=== PATIENT | female | born 1940 | race Caucasian/White ===

== ENCOUNTER 2020-02-15 10:05 | Emergency (ER) | payer MEDICARE, SELFPAY ==
[2020-02-15] VITALS (21 sets, daily range): BP systolic 65–121; BP diastolic 46–67; PULSE 60–92; RESP 11–22; TEMP 36.5; O2SAT 94–100
--- NOTE | ~2020-02-15 | CT_ITS ---
EXAMINATION: CT brain wo con EXAM DATE: 02/15/2020 10:56 INDICATION: Frontal headache, vertigo. TECHNIQUE: Spiral CT of the head was performed without contrast. Axial, coronal and sagittal images were reviewed. The dose-length product (DLP) for this examination was 605.33 mGy-cm. The exposure w as tailored according to patient size, and iterative reconstruction (ASIR) was used as additional dos e reduction technique. Comparison is made to prior examination from 07/11/2016. FINDINGS: There is no acute intraparenchymal hemorrhage. No evidence of intraparenchymal brain mass lesion. No evidence of acute infarction. Please note that initial head CT has limited sensitivity f or small or acute infarctions. There is mild periventricular and subcortical hypodensity, nonspecific but probably related to small vessel ischemic disease. There is mild prominence of the sulci and v entricles related to cerebral atrophy. There is intracranial carotid arteriosclerosis. There are n o extra-axial collections. There is no mass effect or midline shift. Patient has had bilateral ocul ar lens surgery. Soft tissue is unremarkable. The visualized sinuses and mastoid air cells are well aerated. IMPRESSION: 1. No acute intracranial findings. 2. Chronic age related findings. Reviewed, dictated and finalized at location A.
[2020-02-15 10:59] LABS: Basophils Absolute Auto 0.1 K/mm3 (0.0-0.1); Basophils Percent Auto 0.5 % (0.2-1.2); Eosinophils Absolute Auto 0.2 K/mm3 (0-0.3); Eosinophils Percent Auto 2.5 % (0-4.4); Hematocrit 40.9 % (37.0-47.0); Immature Granulocyte Absolute 0.03 K/mm3 (0.00-0.031); Immature Granulocyte Percent A 0.3 % (0-0.5); Lymphocytes Absolute Auto 2.16 K/mm3 (0.9-3.2); Lymphocytes Percent Auto 22.9 % (18.3-44.2); Mean Corpuscular HGB Conc 34.2 g/dl (32-36); Mean Corpuscular Hemoglobin 30.4 pg (26-34); Mean Corpuscular Volume 88.7 fl (80-100); Mean Platelet Volume 9.8 fl (7.4-10.4); Monocytes Absolute Auto 0.8 K/mm3 (0.1-0.6); Monocytes Percent Auto 8.4 % (2.6-8.5); Neutrophils Absolute Auto 6.2 K/mm3 (1.3-6.7); Neutrophils Percent Auto 65.4 % (45.5-73.1); Platelet Count Result 187 k/mm3 (150-375); Red Blood Count 4.61 M/mm3 (4.2-5.4); White Blood Count 9.5 K/mm3 (4.5-10.0)
[2020-02-15 11:04] LABS: Add Urine Microscopic? YES; Appearance Urine Cloudy (Clear); Bacteria Urine Trace /hpf; Bilirubin Urine Negative (Negative); Blood Urine 1+ (Negative); Color Urine Yellow (Yellow); Glucose Urine UA Negative (Negative); Ketones Urine Trace mg/dL (Negative); Leukocyte Esterase Ur 3+ LEU/UL (Negative); Mucus Urine Rare /lpf; Nitrate Urine Negative (Negative); Protein Urine Negative (Negative); Specific Grav Ur 1.016 (1.001-1.035); Squamous Epithelial Cell Urine Moderate /hpf (Few); Urobilinogen Urine Negative mg/dL (<2.0); WBC Urine 16-20 /hpf
[2020-02-15 11:08] LABS: INR 1.1; Prothrombin Time 14.2 Seconds (11.1-14.7)
[2020-02-15 11:09] LABS: Partial Thromboplastin Time 30.2 SECONDS (22.3-36.8)
[2020-02-15 11:10] LABS: Alanine Aminotransferase 15 U/L (4-35); Albumin Level 4.3 g/dL (3.5-5.1); Alkaline Phosphatase 73 U/L (38-126); Anion Gap 9 mmol/L (8-16); Aspartate Amino Transferase 27 U/L (14-36); Bilirubin,Total 0.6 mg/dL (0.2-1.3); Blood Urea Nitrogen 22 mg/dL (7-17); Calcium 9.6 mg/dL (8.4-10.2); Carbon Dioxide 26 mmol/L (22-30); Chloride 100 mmol/L (98-107); Estimated CRCL calculation 40 ml/min; Estimated Glomerular Filt Rate 54; Glucose 98 mg/dL (65-105); Lipase 49 U/L (23-300); Sodium 135 mmol/L (137-145)
[2020-02-15] MEDS: SODIUM CHLORIDE 0.9% IV 1,000 ML 999 ML IV CONT (11:21)
[2020-02-15] MEDS: MECLIZINE HCL 25 MG TABLET 12.5 MG PO (11:22)
[2020-02-15] MEDS: KETOROLAC 15 MG/ML VIAL (*BKC) IV PUSH (11:22)
--- NOTE | 2020-02-15 12:41 | ED.GENADULT ---
HPI - General Adult General Chief complaint: Dizziness <Byron Blanco PA-C - Last Filed: 02/15/20 22:29> Stated complaint: diarrhea, nausea, ARMIJO, vertigo <Byron Blanco PA-C - Last Filed: 02/15/20 22:29> Time Seen by Provider: 02/15/20 10:15 <Byron Blanco PA-C - Last Filed: 02/15/20 22:29> Source: patient <CLAUDIA Kathleen Last Filed: 02/15/20 22:29> Mode of arrival: ambulatory <Byron Blanco PA-C - Last Filed: 02/15/20 22:29> Limitations: no limitations <CLAUDIA Kathleen Last Filed: 02/15/20 22:29> History of Present Illness HPI narrative: Patient presents for evaluation of frontal headache and vertigo that has been progressively worsening since Friday. Patient states that on Friday she had nausea and vomiting 2000 which resolved after 2 days. Patient states that she did eat sauerkraut that day but is unsure if that caused her symptoms. Patient states she has a history of migraines and vertigo but her symptoms are not normally as bad as they have been over the past few days. Patient denies changes in her vision or hearing. Or any head trauma. Patient states that she takes a daily aspirin and Fioricet for migraines. Patient denies taking medication for vertigo. She states in the past she took meclizine. Patient states that this time she does not have nausea or vomiting and only has very mild lower abdominal tenderness over her bladder area. Patient denies burning with urination or frequent urination. <CLAUDIA Kathleen Last Filed: 02/15/20 22:29> Related Data Home medications: Home Medications Medication Instructions Recorded Confirmed antiarthritic combination no.2 900 mg PO 08/25/19 08/25/19 mg tablet aspirin 81 mg tablet,delayed 81 mg PO DAILY 08/25/19 08/25/19 release calcium carbonate 600 mg calcium 600 mg PO DAILY 08/25/19 08/25/19 (1,500 mg) tablet esomeprazole magnesium 40 mg 40 mg PO DAILY 08/25/19 08/25/19 capsule,delayed release hyoscyamine sulfate 0.125 mg tablet 0.125 mg PO DAILY PRN tablet 08/25/19 08/25/19 loperamide 2 mg tablet 2 mg PO Q4H PRN 08/25/19 08/25/19 metoprolol succinate 25 mg 25 mg PO DAILY 08/25/19 08/25/19 tablet,extended release 24 hr ondansetron HCl 4 mg tablet 4 mg PO Q6H PRN 08/25/19 08/25/19 oxybutynin chloride 5 mg 5 mg PO DAILY 08/25/19 08/25/19 tablet,extended release 24 hr psyllium husk 0.4 gram capsule 0.4 gm PO DAILY 08/25/19 08/25/19 rosuvastatin 10 mg tablet 10 mg PO DAILY 08/25/19 08/25/19 <CLAUDIA Kathleen Last Filed: 02/15/20 22:29> Allergies/adverse reactions: Allergies Allergy/AdvReac Type Severity Reaction Status Date / Time amoxicillin Allergy Mild Nausea and Verified 02/15/20 10:06 Vomiting cefaclor Allergy Mild Nausea and Verified 02/15/20 10:06 Vomiting erythromycin base Allergy Mild Nausea and Verified 02/15/20 10:06 Vomiting clavulanic acid AdvReac Mild Nausea and Verified 02/15/20 10:06 Vomiting Penicillins AdvReac Mild Nausea and Verified 02/15/20 10:06 Vomiting <CLAUDIA Kathleen Last Filed: 02/15/20 22:29> Review of Systems Review of Systems: Narrative: CONSTITUTIONAL: Denies fever, chills, or sweats. EYES: Denies visual changes, redness, or discharge. ENT: Denies rhinorrhea, congestion, sore throat, or otalgia. CARDIOVASCULAR: Denies chest pain, palpitations, or edema. RESPIRATORY: Denies cough or dyspnea. GASTROINTESTINAL: Reports mild lower abdominal pain, denies present nausea, vomiting, or diarrhea. GENITOURINARY: Denies dysuria or hematuria. SKIN: Denies rash or itching. MUSCULOSKELETAL: Denies back pain, joint pain, or myalgia. NEUROLOGIC: Reports headache, denies numbness, dizziness, or weakness. <CLAUDIA Kathleen Last Filed: 02/15/20 22:29> [facility] Social History Social History: Social History Smoking status: Never smoker Second hand tobacco smoke
== END 2020-02-15 13:30 | disposition home or self-care (01) ==
PROVIDERS: Physician Assistant; Emergency Provider General Practice; PCP Internal Medicine
DX: H81.10 Benign paroxysmal vertigo, unspecified ear (principal); N39.0 Urinary tract infection, site not specified; Z79.82 Long term (current) use of aspirin; R10.30 Lower abdominal pain, unspecified
CPT/HCPCS: 36415; 70450; 80053; 81001; 83690; 85025; 85610; 85730; 87077; 87086; 87088; 87186; 96365; 96375; 99284; A9270; J0131; J1885; J7030

== ENCOUNTER 2020-03-28 08:31 | Outpatient (CLI) | payer MEDICARE, SELFPAY ==
--- NOTE | ~2020-03-28 | XR_ITS ---
XR UGIAC w barium swallow DATE: 03/28/2020 09:45 INDICATION: Food sometimes gets stuck in the lower cervical area TECHNIQUE: Esophagram and Air-contrast upper gastrointestinal series COMPARISON: 09/26/2015 air contrast upper gastrointestinal series FINDINGS: There is normal deglutition. No cricopharyngeal muscle dysfunction or Zenker's diverticulum . Some tertiary contractions of the esophagus are noted. No stricture, mucosal fold thickening, erosi on, ulceration or intraluminal mass lesion of the esophagus is evident. Approximately 3.5 x 5.5 cm sliding-type hiatal hernia. No stricture or intraluminal mass lesion of the stomach or gastric mucosal erosion or ulceration is e vident. The duodenal bulb is normally shaped. Normal mucosal pattern of the duodenum. Approximately 4 cm duodenal diverticulum. The proximal small bowel mucosal pattern appears normal. No evidence of small bowel obstruction. Surgical clips at the gallbladder fossa, consistent with cholecystectomy IMPRESSION: Approximately 3.5 x 5.5 cm sliding hiatal hernia 4 cm duodenal diverticulum Status post cholecystectomy Reviewed, dictated and finalized at Location [facility]. Reviewed, dictated and finalized at location A.
== END 2020-03-28 08:32 | disposition home or self-care (01) ==
PROVIDERS: PCP Internal Medicine; Visit Provider Internal Medicine Gastroenterology
DX: R13.10 Dysphagia, unspecified (principal); K44.9 Diaphragmatic hernia without obstruction or gangrene; K57.10 Diverticulosis of small intestine without perforation or abscess without bleeding; Z90.49 Acquired absence of other specified parts of digestive tract
CPT/HCPCS: 74246

== ENCOUNTER 2020-05-30 10:16 | Outpatient (CLI) | payer MEDICARE, SELFPAY ==
--- NOTE | ~2020-05-30 | MM_ITS ---
EXAMINATION: MM screening [facility] BI w carlos HISTORY: Screening TECHNIQUE: Craniocaudal and mediolateral oblique 3-D tomosynthesis images were obtained and synthetic 2-D images were generated. CAD analysis was submitted and interpreted. COMPARISON: Comparison to multiple prior studies sequentially, with oldest reviewed study dated 05/02. BREAST PARENCHYMAL COMPOSITION: There are scattered areas of fibroglandular density. FINDINGS: There is no evidence of suspicious mass, calcification, or architectural distortion to sugg est malignancy in either breast. There has been no suspicious interval change. IMPRESSION: 1. No mammographic evidence of malignancy. 2. Recommend routine screening mammography in one year. BI-RADS Category 1: Negative Reviewed, dictated and finalized at location A. WORK [employer]
== END 2020-05-30 10:17 | disposition home or self-care (01) ==
LOC: ANHIMG 10:22
PROVIDERS: PCP Internal Medicine; Visit Provider Internal Medicine
DX: Z12.31 Encounter for screening mammogram for malignant neoplasm of breast (principal)
CPT/HCPCS: 77063; 77067

== ENCOUNTER 2021-03-02 10:48 | Outpatient (CLI) | payer MEDICARE, SELFPAY ==
[2021-03-02 11:32] LABS: Add Urine Microscopic? YES; Appearance Urine Clear (Clear); Bilirubin Urine Negative (Negative); Blood Urine 1+ (Negative); Color Urine Yellow (Yellow); Glucose Urine UA Negative (Negative); Ketones Urine Negative (Negative); Leukocyte Esterase Ur 2+ LEU/UL (Negative); Mucus Urine Rare /lpf; Nitrate Urine Negative (Negative); Protein Urine Negative (Negative); RBC Urine 0-2 /hpf (0-2); Specific Grav Ur 1.014 (1.001-1.035); Squamous Epithelial Cell Urine Few /hpf (Few); Urobilinogen Urine Negative mg/dL (<2.0); WBC Urine 0-3 /hpf
== END 2021-03-02 10:49 | disposition home or self-care (01) ==
PROVIDERS: PCP Internal Medicine; Visit Provider Internal Medicine
DX: R30.0 Dysuria (principal)
CPT/HCPCS: 81001

== ENCOUNTER → 2021-03-03 00:42 | Outpatient (CLI) | payer MEDICARE, SELFPAY ==
[2021-03-03 19:34] LABS: SARS-CoV-2 RNA PCR Positive
== END ==
PROVIDERS: PCP Internal Medicine; Visit Provider Internal Medicine
DX: U07.1 COVID-19 (principal)
CPT/HCPCS: C9803; U0003; U0005

== ENCOUNTER 2021-03-05 09:48 | Outpatient (RCR) | payer MEDICARE, SELFPAY ==
[2021-03-05] MEDS: ACETAMINOPHEN 325 MG TABLET 650 MG PO (11:38)
[2021-03-05] MEDS: FAMOTIDINE 20 MG TABLET PO (11:39)
[2021-03-05] MEDS: diphenhydrAMINE HCl CAP 25 MG CAPSULE PO (11:39)
[2021-03-05 11:53] VITALS: BP 141/62; PULSE 72; RESP 18; TEMP 36.6; O2SAT 97
[2021-03-05 13:02] VITALS: BP 130/60
--- NOTE | 2021-03-06 15:11 | PC.NURSE ---
Patient states that she feel a little better. No complications after the covid infusion.
== END 2021-03-05 15:44 | disposition home or self-care (01) ==
LOC: AMCINF 09:48
PROVIDERS: PCP Internal Medicine; Referring Provider Internal Medicine; Visit Provider Internal Medicine Hematology & Oncology
DX: Z23 Encounter for immunization (principal); U07.1 COVID-19
CPT/HCPCS: A9270; J7050; M0243; Q0244

== ENCOUNTER 2021-08-13 07:25 | Outpatient (CLI) | payer MEDICARE, SELFPAY ==
--- NOTE | ~2021-08-13 | MM_ITS ---
EXAMINATION: MM screening [facility] BI w carlos HISTORY: Screening mammogram TECHNIQUE: Craniocaudal and mediolateral oblique 3-D tomosynthesis images were obtained and synthetic 2-D images were generated. CAD analysis was submitted and interpreted. COMPARISON: 05/30/2020, 05/03/2019, 04/28/2018 BREAST PARENCHYMAL COMPOSITION: There are scattered areas of fibroglandular density. FINDINGS: There is no evidence of suspicious mass, calcification, or architectural distortion to sugg est malignancy in either breast. There has been no suspicious interval change. IMPRESSION: 1. No mammographic evidence of malignancy. 2. Recommend routine screening mammography in one year. BI-RADS Category 1: Negative Reviewed, dictated and finalized at location A.
== END 2021-08-13 07:26 | disposition home or self-care (01) ==
LOC: ANHIMG 07:28
PROVIDERS: PCP Internal Medicine; Visit Provider Internal Medicine
DX: Z12.31 Encounter for screening mammogram for malignant neoplasm of breast (principal)
CPT/HCPCS: 77063; 77067

== ENCOUNTER 2021-08-29 12:42 | Outpatient (CLI) | payer MEDICARE, SELFPAY ==
--- NOTE | ~2021-08-29 | XR_ITS ---
XR chest 2V DATE: 08/29/2021 13:00 INDICATION: Cough TECHNIQUE: PA and lateral views COMPARISON: 10/17/2014 2 view chest FINDINGS: Bilateral hyperinflation, increased retrosternal airspace, suggesting COPD. No pulmonary in filtrate or consolidation, pleural effusion or pulmonary vascular congestion or pneumothorax. Normal heart size. No hilar or mediastinal enlargement. There is levoscoliosis of the thoracic spine and rotatory dextroscoliosis of the lumbar spine. Diffuse osteopenia. IMPRESSION: Bilateral hyperinflation consistent with COPD No active cardiopulmonary disease Thoracic and lumbar scoliosis Osteopenia Reviewed, dictated and finalized at location A.
== END 2021-08-29 12:43 | disposition home or self-care (01) ==
PROVIDERS: PCP Internal Medicine; Visit Provider Internal Medicine
DX: R05.9 Cough, unspecified (principal); R91.8 Other nonspecific abnormal finding of lung field; M41.9 Scoliosis, unspecified; M85.88 Other specified disorders of bone density and structure, other site
CPT/HCPCS: 71046

== ENCOUNTER 2022-01-16 07:46 | Outpatient (CLI) | payer MEDICARE, SELFPAY ==
--- NOTE | ~2022-01-16 | DEXA_ITS ---
Bone Density Report Name: ALIN GAUTAM Age: 81 Sex: Female Ethnicity: White Date of : 1940 Indication: postmenopausal; screening for osteoporosis; height loss; prior fracture; hysterectomy; Referring Provider: BARRETT MARTIN Study: Bone densitometry was performed. Exam Date: January 16, 2022 Accession number: [id number] Bone Density: Region BMD T-score Z-score Classification AP Spine(L1, L2) 0.979 0.0 2.5 Normal Femoral Neck (Left) 0.703 -1.3 1.0 Osteopenia Total Hip (Left) 0.820 -1.0 1.0 Normal Femoral Neck (Right) 0.665 -1.7 0.6 Osteopenia Total Hip (Right) 0.781 -1.3 0.7 Osteopenia Total Hip Mean 0.801 -1.2 0.9 Osteopenia World Health Organization criteria for BMD impression classify patients as: Normal (T-score at or above -1.0), Osteopenia (T-score between -1.0 and -2.5), or Osteoporosis (T-score at or below -2.5). 10-year Fracture Risk(1): Major Osteoporotic Fracture 18% Hip Fracture 4.3% Reported Risk Factors: [place] (), Neck BMD=0.665, BMI=22.1, previous fracture (1) FRAX(R) Version 3.08. Fracture probability calculated for an untreated patient. Fracture probability may be lower if the patient has received treatment. Previous Exams: Region Exam Age BMD T-score BMD Change BMD Change Date g/cm2 vs Baseline vs Previous AP Spine (L1-L2) 01/16/2022 81 0.979 0.0 -0.024 (-2.4%) -0.024 (-2.4%) 04/01/2019 78 1.003 0.2 Total Hip(Left) 01/16/2022 81 0.820 -1.0 -0.061 (-6.9%) -0.061 (-6.9%) 04/01/2019 78 0.881 -0.5 Total Hip(Right) 01/16/2022 81 0.781 -1.3 -0.054 (-6.4%) -0.054 (-6.4%) 04/01/2019 78 0.835 -0.9 *Denotes significance at 95% confidence level, LSC for AP Spine = 0.022 g/cm2, LSC for Total Hip = 0.027 g/cm2 Clinical Information Provided by Patient: Has had a low trauma fracture Has used the following medications: Vitamin D, Calcium Has the following medical conditions: Hysterectomy Patient maximum height was 68 Menopause Age: 47 No regular weight bearing exercise Does not regularly consume dairy products Drinks caffeinated beverages Onset of menses at age 16 Number of children 2 Impression: The patient has low bone mass, based on the Right Femoral Neck T-score. The patient has an estimated ten-year risk of hip fracture of 4.3% and an estimated ten-year risk of major fracture of 18%, based on the WHO FRAX algorithm. The patient has risk factors, including: previo
== END 2022-01-16 07:47 | disposition home or self-care (01) ==
PROVIDERS: PCP Internal Medicine; Visit Provider Physician Assistant
DX: M85.80 Other specified disorders of bone density and structure, unspecified site (principal); M85.852 Other specified disorders of bone density and structure, left thigh; M85.851 Other specified disorders of bone density and structure, right thigh
CPT/HCPCS: 77080

== ENCOUNTER 2022-03-15 10:29 | Outpatient (CLI) | payer MEDICARE, SELFPAY ==
[2022-03-15 11:35] LABS: Add Urine Microscopic? YES; Appearance Urine Cloudy (Clear); Bacteria Urine Trace /hpf; Bilirubin Urine Negative (Negative); Blood Urine Negative (Negative); Color Urine Yellow (Yellow); Glucose Urine UA Negative (Negative); Ketones Urine Negative (Negative); Leukocyte Esterase Ur Trace LEU/UL (NEGATIVE); Mucus Urine Rare /lpf; Nitrate Urine Negative (Negative); Protein Urine Negative (Negative); Specific Grav Ur 1.021 (1.001-1.035); Squamous Epithelial Cell Urine Few /hpf (Few); Urobilinogen Urine Negative mg/dL (<2.0); WBC Urine 0-3 /hpf (0-3)
== END 2022-03-15 10:30 | disposition home or self-care (01) ==
PROVIDERS: PCP Internal Medicine; Visit Provider Physician Assistant
DX: R30.0 Dysuria (principal)
CPT/HCPCS: 81001

== ENCOUNTER 2022-04-29 08:07 | Day surgery (SDC) | payer MEDICARE, SELFPAY ==
[2022-04-17 09:57] VITALS: BMI 21.7
[2022-04-29 08:20] VITALS: BP 124/66; PULSE 66; RESP 16; TEMP 36.6; O2SAT 100
--- NOTE | 2022-04-29 08:48 | WPDANESEPPF ---
Anes - Initial Pre Proc Eval Procedure: Operation Date: 04/29/22 09:45 Proposed Procedures p Esophagogastroduodenoscopy - Trey Magallon MD Date/Time: 04/29/22 08:48 Surgeon: Trey Magallon MD Pre Op Diagnosis: Dysphagia Patient Data Age: 81 Gender: F Height: 1.68 m Weight: 61 kg Last Vital Signs Temp 36.6 C 04/29/22 08:20 Pulse 66 04/29/22 08:20 Resp 16 04/29/22 08:20 BP 124/66 04/29/22 08:20 Pulse Ox 100 04/29/22 08:20 O2 Del Method Room Air 04/29/22 08:20 Allergies Allergy/AdvReac Type Severity Reaction Status Date / Time amoxicillin Allergy Mild Nausea and Verified 04/29/22 08:28 Vomiting cefaclor Allergy Mild Nausea and Verified 04/29/22 08:28 Vomiting erythromycin base Allergy Mild Nausea and Verified 04/29/22 08:28 Vomiting clavulanic acid AdvReac Mild Nausea and Verified 04/29/22 08:28 Vomiting Penicillins AdvReac Mild Nausea and Verified 04/29/22 08:28 Vomiting cefuroxime AdvReac Diarrhea Verified 04/29/22 08:28 Home Medications Medication Instructions Recorded Confirmed Type aspirin 81 mg tablet,delayed 81 mg PO DAILY 08/25/19 04/29/22 History release (Adult Low Dose Aspirin) calcium carbonate 600 mg calcium 600 mg PO DAILY 08/25/19 04/29/22 History (1,500 mg) tablet (Calcium) oxybutynin chloride 5 mg 5 mg PO DAILY 08/25/19 04/29/22 History tablet,extended release 24 hr psyllium husk 0.4 gram capsule 0.4 gm PO DAILY 08/25/19 04/29/22 History (Daily Fiber) rosuvastatin 10 mg tablet (Crestor) 10 mg PO DAILY 08/25/19 04/29/22 History antiarthritic combination no.2 900 900 mg PO BID PRN pain 02/07/21 04/29/22 History mg tablet (glucosamine-chondroitin) multivitamin (Daily Multi-Vitamin 1 tablet PO DAILY 02/07/21 04/29/22 History tablet) omeprazole 20 mg capsule,delayed 20 mg PO BID 3 months #180 caps 09/11/21 04/29/22 Rx release diphenoxylate-atropine 2.5 1 tablet PO TID PRN diarrhea #60 11/15/21 04/29/22 Rx mg-0.025 mg tablet (Lomotil) tabs citalopram 40 mg tablet 40 mg PO DAILY #90 tabs 02/18/22 04/29/22 Rx hyoscyamine sulfate 0.375 mg See Rx Instructions .Route 02/19/22 04/29/22 Rx tablet,extended release,12 hr .COMPLEX #30 tabs meloxicam 15 mg tablet 15 mg PO DAILY #90 tabs 03/04/22 04/29/22 Rx metoprolol succinate 25 mg 12.5 mg PO DAILY 03/15/22 04/29/22 History tablet,extended release 24 hr pehuhgxkxk-okrfpefnvvlnc-mkcfoqxy 1 tablet PO .q12 PRN headache #30 03/25/22 04/29/22 Rx 50 mg-325 mg-40 mg tablet tabs alprazolam 0.5 mg tablet 0.5 mg PO DAILY PRN anxiety #30 04/19/22 04/29/22 Rx tabs Patient hx anesthesia problems: none Family hx anesthesia problems: none Results Review: All pre-operative results and documents have been reviewed as part of the pre-operative evaluation. [facility] Past Medical History Medical History (Updated 04/04/22 @ 12:50 by Prabhakar Colindres DO) Colon cancer screening Surgical History Surgical History (Updated 04/29/22 @ 08:50 by Mahendra Reed MD) S/P repair of paraesophageal hernia open Family History Family History Mother Family history of lung cancer, Onset Age: 74 Father Patient's father is Social History Social History Smoking status: Never smoker Second hand tobacco smoke exposure: No Alcohol intake: never Substance use: never Substance use type: does not use Lack of Transportation: No Lack of Food: Never True Current Housing: I Have Housing Concerned About Future Housing: No Difficulty Paying Gas/Electric Bills: No Difficulty Paying for Meds: No Currently Unemployed: No Education: Decline to Answer Difficulty w/ Childcare or Family Care: No Living arrangements: alone Spiritual care concerns: No Anes - Eval Final PreProcedure Day of Procedure 04/29/22 08:48
[2022-04-29] MEDS: LACTATED RINGERS 1,000 ML 150 ML IV CONT (08:49)
--- NOTE | 2022-04-29 09:12 | PM.HPGS ---
History of Present Illness History of Present Illness Consent: Risks, benefits, and alternatives have been discussed and questions answered. Patient agrees to proceed with procedure. Chief complaint: Dysphagia Narrative: Minda Meyer is a 81 year old female presents for EGD. Patient has complaints that when she has for wakes 1st thing in the morning she has to drink water otherwise it is difficult for her to swallow. She feels that food will hang in her mouth the not progress into her esophagus. She denies any significant heartburn. Infrequently she will have a small amount of reflux. Patient denies any weight loss she has no pain. Patient reports that in 2016 she had laparoscopic paraesophageal hiatal hernia repair. She apparently has done well since that time. Patient currently maintained on omeprazole 20mg p.o. b.i.d.. She has been treated for irritable bowel syndrome. Screening colonoscopies have been unremarkable. Review of Systems Review of Systems: Review of systems noncontributory. [facility] Past Medical History Medical History (Updated 04/04/22 @ 12:50 by Prabhakar Colindres DO) Colon cancer screening Surgical History Surgical History (Updated 04/29/22 @ 09:14 by Trey Magallon MD) S/P repair of paraesophageal hernia open Family History Family History Mother Family history of lung cancer, Onset Age: 74 Father Patient's father is Social History Social History Smoking status: Never smoker Second hand tobacco smoke exposure: No Alcohol intake: never Substance use: never Substance use type: does not use Lack of Transportation: No Lack of Food: Never True Current Housing: I Have Housing Concerned About Future Housing: No Difficulty Paying Gas/Electric Bills: No Difficulty Paying for Meds: No Currently Unemployed: No Education: Decline to Answer Difficulty w/ Childcare or Family Care: No Living arrangements: alone Spiritual care concerns: No Meds Home Medications and Allergies Home Medications Medication Instructions Recorded Confirmed Type aspirin 81 mg tablet,delayed 81 mg PO DAILY 08/25/19 04/29/22 History release (Adult Low Dose Aspirin) calcium carbonate 600 mg calcium 600 mg PO DAILY 08/25/19 04/29/22 History (1,500 mg) tablet (Calcium) oxybutynin chloride 5 mg 5 mg PO DAILY 08/25/19 04/29/22 History tablet,extended release 24 hr psyllium husk 0.4 gram capsule 0.4 gm PO DAILY 08/25/19 04/29/22 History (Daily Fiber) rosuvastatin 10 mg tablet (Crestor) 10 mg PO DAILY 08/25/19 04/29/22 History antiarthritic combination no.2 900 900 mg PO BID PRN pain 02/07/21 04/29/22 History mg tablet (glucosamine-chondroitin) multivitamin (Daily Multi-Vitamin 1 tablet PO DAILY 02/07/21 04/29/22 History tablet) omeprazole 20 mg capsule,delayed 20 mg PO BID 3 months #180 caps 09/11/21 04/29/22 Rx release diphenoxylate-atropine 2.5 1 tablet PO TID PRN diarrhea #60 11/15/21 04/29/22 Rx mg-0.025 mg tablet (Lomotil) tabs citalopram 40 mg tablet 40 mg PO DAILY #90 tabs 02/18/22 04/29/22 Rx hyoscyamine sulfate 0.375 mg See Rx Instructions .Route 02/19/22 04/29/22 Rx tablet,extended release,12 hr .COMPLEX #30 tabs meloxicam 15 mg tablet 15 mg PO DAILY #90 tabs 03/04/22 04/29/22 Rx metoprolol succinate 25 mg 12.5 mg PO DAILY 03/15/22 04/29/22 History tablet,extended release 24 hr nmzotuqsyo-fbwwnfartfnzx-xilgznza 1 tablet PO .q12 PRN headache #30 03/25/22 04/29/22 Rx 50 mg-325 mg-40 mg tablet tabs alprazolam 0.5 mg tablet 0.5 mg PO DAILY PRN anxiety #30 04/19/22 04/29/22 Rx tabs Allergies Allergy/AdvReac Type Severity Reaction Status Date / Time amoxicillin Allergy Mild Nausea and Verified 04/29/22 08:28 Vomiting cefaclor Allergy Mild Nausea and Verified 04/29/22 08:28 Vomiting erythromy
[2022-04-29 09:38] VITALS: BP 140/60; PULSE 60; RESP 16; O2SAT 100
--- NOTE | 2022-04-29 09:47 | WPDANESPN ---
Anes - Prog Note Post-Op Date/Time: 04/29/22 09:47 Cardiovascular status: normal Respiratory status: normal Airway patency: baseline Mental status: baseline Post-Op hydration status: normal Vital Signs: Last Vital Signs Temp 36.6 C 04/29/22 08:20 Pulse 60 04/29/22 09:38 Resp 16 04/29/22 09:38 BP 140/60 04/29/22 09:38 Pulse Ox 100 04/29/22 09:38 O2 Del Method Room Air 04/29/22 09:38 Pain Score (VAS): 0/10 I/O: Intake & Output 04/28/22 04/29/22 04/29/22 23:59 07:59 15:59 Intake Total 0 Balance 0 Patient Feedback: Patient satisfied with anesthetic care.
[2022-04-29 09:48] VITALS: BP 123/64; PULSE 62; RESP 16; O2SAT 98
[2022-04-29 09:58] VITALS: BP 121/64; PULSE 60; RESP 16
--- NOTE | 2022-04-29 10:54 | SUR.PHASEII ---
LATE NOTE, 1010; PT AWAKE AND ALERT. DENIES PAIN. EATING AND DRINKING. DRESSED AND READY FOR DISCHARGE. AWAITING RIDE ARRIVAL AND DC ORDERS FROM DR AGUILAR
== END 2022-04-29 10:35 | disposition home or self-care (01) ==
PROVIDERS: PCP Internal Medicine; Visit Provider Internal Medicine Gastroenterology
PROC: 0DJ08ZZ Inspection of Upper Intestinal Tract, Via Natural or Artificial Opening Endoscopic (ICD-10-PCS; CPT 43235; principal; 2022-04-29 09:45)
DX: Z87.19 Personal history of other diseases of the digestive system (principal)
CPT/HCPCS: 43450

== ENCOUNTER 2022-08-12 09:57 | Outpatient (CLI) | payer MEDICARE, SELFPAY ==
--- NOTE | 2022-09-05 17:53 | SLEEP_ITS ---
This report was moved to the correct visit on 09/09/2022. Original report was signed by Deisy Torrez DO on 09/05/221902. Sleep Study Date of Study: 08/12/2022 Ordering Provider: Deisy Torrez DO Interpreting Physician: Deisy Torrez DO Sleep Study Type: Polysomnogram Height: 1.68 m Weight: 56.9 kg Body Mass Index: 20.2 [place]: 7 Reason for Sleep Study PSG on 03/19/2016 at [facility] showed AHI of 3.7, RDI of 8.7. PLMI of 48.7; Prescribed CPAP but had it taken away due to non-compliance Sleep History The patient is an 82-year-old female with esophageal web, optic neuritis, chronic headaches, overactive bladder, GERD, hyperlipidemia and chronic back pain that had a sleep study ordered for evaluation of sleep apnea. The patient occasionally awakens from sleep short of breath. She frequently awakens at night with heartburn, belching or cough. He constantly snores loudly enough that others complain. She frequently has trouble sleeping when she has a cold. She occasionally wakes up gasping for air throughout the night. She denies sweating excessively at night. She occasionally has heart palpitations or irregular heartbeats during the night. She denies falling asleep during the day and while driving. He denies sleep paralysis, cataplexy and hypnagogic / hypnopompic hallucinations. She denies having trouble at school or work due to sleepiness. She denies feeling afraid of going to sleep. She rarely has nightmares. She rarely remembers her dreams. She occasionally has thoughts racing through her mind. He rarely feels sad or depressed. She frequently has anxiety. She rarely has muscular tension. She constantly notices parts of her body jerk. She constantly kicks during the night. She denies having crawling and aching feelings in her legs and denies having leg pain during the night. She denies grinding her teeth during sleep and denies awakening with morning jaw pain. She is frequently bothered by pain during the day and frequently awakened by pain during the night. She rarely wakes up feeling stiff in the morning. She occasionally wakes up with sore or achy muscles. She frequently wakes up with pain in her neck. She does not have a set wake-up time or set bedtime. She typically wakes up 4 times throughout the night for unknown reasons. When she awakens, she will get up and read. It can take her 30 minutes or several hours until she falls back asleep. She typically gets 6 hours of sleep per night. He currently lives with her 2 grandchildren. She denies consuming any caffeinated beverages within 2 hours of bedtime. She denies engaging in physical exercise before bedtime. She will read before falling asleep. She denies watching television before falling asleep. She denies taking naps in the afternoon or the evening. She consumes 8 oz of caffeinated soda per day. She will use marijuana at bedtime occasionally. She denies tobacco and alcohol use. [facility] Past Medical History Medical History Anxiety Tang's palsy Bilateral carotid artery disease Depression Diverticulitis Diverticulosis Dyslipidemia Esophageal web Gastroesophageal reflux disease Hiatal hernia Hiatal hernia Irritable bowel syndrome with diarrhea Migraine headache Obstructive sleep apnea Optic neuritis Overactive bladder Paroxysmal atrial fibrillation Peptic ulcer Polio Surgical History Surgical History History of appendectomy History of bilateral cataract extraction History of cholecystectomy History of esophagogastroduodenoscopy History of hysterectomy History of loop recorder History of open reduction and internal fixation (ORIF) procedure Repair right ankle
== END 2022-08-13 07:10 | disposition home or self-care (01) ==
LOC: ANHCSM 09:58
PROVIDERS: PCP Family Medicine; Visit Provider Family Medicine
DX: G47.9 Sleep disorder, unspecified (principal); G47.61 Periodic limb movement disorder
CPT/HCPCS: 95810

== ENCOUNTER 2022-08-15 07:16 | Outpatient (CLI) | payer MEDICARE, SELFPAY ==
--- NOTE | ~2022-08-15 | MM_ITS ---
EXAMINATION: MM screening jaja BI w carlos HISTORY: Screening mammogram TECHNIQUE: Craniocaudal and mediolateral oblique 3-D tomosynthesis images were obtained and synthetic 2-D images were generated. CAD analysis was submitted and interpreted. COMPARISON: 08/13/2021, 05/30/2020, 05/03/2019 bilateral screening mammogram examinations BREAST PARENCHYMAL COMPOSITION: There are scattered areas of fibroglandular density. FINDINGS: There is no evidence of suspicious mass, calcification, or architectural distortion to sugg est malignancy in either breast. There has been no suspicious interval change. IMPRESSION: 1. No mammographic evidence of malignancy. 2. Recommend routine screening mammography in one year. BI-RADS Category 1: Negative Reviewed, dictated and finalized at location A.
== END 2022-08-15 07:17 | disposition home or self-care (01) ==
LOC: ANHIMG 07:17
PROVIDERS: PCP Family Medicine; Visit Provider Internal Medicine
DX: Z12.31 Encounter for screening mammogram for malignant neoplasm of breast (principal)
CPT/HCPCS: 77063; 77067

== ENCOUNTER 2022-09-05 08:10 | Inpatient (IN) | payer MEDICARE, SELFPAY ==
[2022-09-05] VITALS (31 sets, daily range): BP systolic 93–133; BP diastolic 45–103; PULSE 76–170; RESP 12–20; TEMP 36.3–36.5; O2SAT 92–100; BMI 20.2
--- NOTE | ~2022-09-05 | CT_ITS ---
EXAMINATION: CT abdomen pelvis w con DATE: 09/05/2022 09:32 INDICATION: Abdominal pain TECHNIQUE: Computed tomography (CT) of the abdomen and pelvis was performed with 100 mL Omnipaque-350 intravenous contrast. Automated exposure control and iterative reconstruction technique were employe d. The dose-length product was 340.78 mGy-cm. COMPARISON: 07/18/2009 FINDINGS: Mild discoid atelectasis in the right middle lobe. Heart size is normal. Dense mitral annular calcifi c location. No pericardial effusion. Moderate-sized sliding-type hiatal hernia. Mild central intrahep atic biliary ductal dilation likely related to prior cholecystectomy with surgical clips the gallblad taurus fossa. Common bile duct remains normal in caliber measuring up to 6 mm. Spleen, pancreas and bila teral adrenal glands are normal. Couple stones in a lower pole calyx of the left kidney larger measur ing 3 mm in maximal diameter. Mild bilateral hydronephrosis with transition points at the ureteropelv ic junctions. No evident obstructing urolithiasis along the bilateral normal caliber ureters. Small d iverticulum at the left posterior bladder. The uterus is not identified and has likely been surgicall y resected. There is diffuse edematous-appearing wall thickening and mild lung the descending colon a nd more prominent at the sigmoid colon consistent with colitis. There are also few several scattered colonic diverticula but without adjacent inflammatory change to suggest diverticulitis. No bowel obst ruction. The appendix is not visualized. No pericecal inflammatory change to suggest acute appendicit is. No free intraperitoneal gas or fluid. No pathologically enlarged abdominal or pelvic lymphadenopa thy. Lumbar dextroscoliosis with severe spondylosis. IMPRESSION: 1. Distal colitis which could be infectious, inflammatory or less likely ischemic in etiology. 2. Moderate-sized sliding-type hiatal hernia. 3. A couple small nonobstructing left renal stones. Bilateral mild hydronephrosis extending to the ur eteropelvic junctions and which given the bilaterality, the presence of a bladder diverticulum and ab sence of evident obstructing urolithiasis is most likely related to bladder outlet obstruction or aamir rogenic bladder. Reviewed, dictated and finalized at location [facility]. IMPRESSION: 1. Distal colitis which could be infectious, inflammatory or less likely ischem ic in etiology. 2. Moderate-sized sliding-type hiatal hernia. 3. A couple small nonobstructing left renal stones. Bilateral mild hydronephros is extending to the ureteropelvic junctions and which given the bilaterality, t he presence of a bladder diverticulum and absence of evident obstructing urolit hiasis is most likely related to bladder outlet obstruction or neurogenic bladd er.
--- NOTE | ~2022-09-05 | CT_ITS ---
EXAMINATION: CT brain wo con DATE: 09/05/2022 20:23 INDICATION: Balance issues. Headache. TECHNIQUE: Computed tomography (CT) of the head was performed without intravenous contrast. The mA wa s adjusted according to patient size. Iterative reconstruction technique was employed. Exam dose: 60 5.33 mGy-cm total exam DLP. COMPARISON: 02/15/2020 CT brain FINDINGS: Bilateral carotid siphon internal carotid artery calcifications. There is nonspecific dimin ished attenuation cerebral white matter, likely due to chronic small vessel ischemic changes. No intracranial mass lesion or hemorrhage or cerebrovascular accident. No midline shift or mass effec t. No subdural or epidural hematoma. There is prominent opacification of the right sphenoid sinus. The included paranasal sinuses and mast oid air cells otherwise are normally developed and aerated. No fracture or bone destruction of the cranial vault. IMPRESSION: Cerebral atherosclerosis and chronic small vessel ischemic changes of the cerebral white matter No acute intracranial finding Opacified right sphenoid sinus Reviewed, dictated and finalized at [facility]. Reviewed, dictated and finalized at [facility].
--- NOTE | ~2022-09-05 | XR_ITS ---
EXAMINATION: XR chest 1V portable DATE: 09/05/2022 09:03 INDICATION: Tachycardia. TECHNIQUE: A single frontal view of the chest was obtained. COMPARISON: Chest 2 views 08/29/2021 FINDINGS: A calcified right lung nodule is consistent with old granulomatous disease. No pleural effu corwin or pneumothorax. The heart size is normal. There are surgical clips in left upper quadrant of th e abdomen. IMPRESSION: 1. No acute cardiopulmonary disease. Reviewed, dictated and finalized at location [facility].
--- NOTE | ~2022-09-05 | US_ITS ---
EXAMINATION: US renal BI DATE: 09/05/2022 22:45 INDICATION: Bilateral hydronephrosis TECHNIQUE: Multiple ultrasound grayscale images of the kidneys were obtained. COMPARISON: None. FINDINGS: The right kidney measures 9.7 x 3.9 x 4.5 cm. The left kidney measures 10.6 x 4.8 x 4.6 cm. The kidne ys demonstrate normal echogenicity. There is no hydronephrosis in either kidney. No stones identifie d. The bladder is normal. IMPRESSION: 1. Normal kidneys without hydronephrosis. Reviewed, dictated and finalized at location [facility].
[2022-09-05 08:43] LABS: Basophils Absolute Auto 0.1 K/mm3 (0.0-0.1); Basophils Percent Auto 0.4 % (0.2-1.2); Eosinophils Absolute Auto 0.3 K/mm3 (0-0.3); Hematocrit 48.6 % (37.0-47.0); Hemoglobin 16.1 g/dL (12.0-15.0); Immature Granulocyte Absolute 0.04 K/mm3 (0.00-0.031); Immature Granulocyte Percent A 0.3 % (0-0.5); Lymphocytes Absolute Auto 1.97 K/mm3 (0.9-3.2); Lymphocytes Percent Auto 15.7 % (18.3-44.2); Mean Corpuscular HGB Conc 33.1 g/dl (32-36); Mean Corpuscular Volume 93.6 fl (80-100); Mean Platelet Volume 9.1 fl (7.4-10.4); Monocytes Absolute Auto 0.9 K/mm3 (0.1-0.6); Monocytes Percent Auto 7.4 % (2.6-8.5); Neutrophils Absolute Auto 9.3 K/mm3 (1.3-6.7); Neutrophils Percent Auto 74.2 % (45.5-73.1); Platelet Count Result 313 k/mm3 (150-375); Red Blood Count 5.19 M/mm3 (4.2-5.4); Red Cell Distribution Width 12.9 % (11.5-14.5); White Blood Count 12.6 K/mm3 (4.5-10.0)
[2022-09-05] MEDS: ADENOSINE IV SOLN 6 MG/2 ML VIAL IV PUSH (08:45)
--- NOTE | 2022-09-05 08:45 | ECG_ITS ---
Measurements Intervals [place] Rate: 85 P: [place]: 0 QRS: -55 QRSD: 84 T: 48 QT: 380 QTc: 453 Interpretive Statements LIKELY SINUS RHYTHM WITH SHORT [place] INTERVAL WITH SINUS ARRHYTHMIA POSSIBLE RIGHT VENTRICULAR CONDUCTION DELAY [RSR (QR) IN V1/V2] LEFT ANTERIOR FASCICULAR BLOCK [QRS AXIS <= -45, QR IN I, RS IN II] COMPARED TO ECG 09/05/2022 08:27:52 SINUS RHYTHM NOW PRESENT Electronically Signed On 09-05-2022 10:51:13 CDT by Mariella Schuler M.D.
[2022-09-05] MEDS: SODIUM CHLORIDE 0.9% IV 1,000 ML 999 ML IV CONT (08:49)
[2022-09-05] MEDS: dilTIAZem HCl INJ 25 MG/5 ML VIAL 10 MG IV PUSH (08:49)
--- NOTE | 2022-09-05 08:49 | ED.GENADULT ---
HPI - General Adult General Chief complaint: Abdominal Pain Stated complaint: abd pain Time Seen by Provider: 09/05/22 08:29 History of Present Illness HPI narrative: 82-year-old female presenting to the emergency department for evaluation of abdominal pain that started on Friday night. Patient states she has had some nausea and diarrhea. Upon arrival to the emergency department patient had heart rate in the 160s to 170s. Patient reports he does have a prior history of atrial fibrillation. Patient follows up with Dr. Newell for cardiology. Patient denies any chest pain or shortness of breath. Patient states she has had increased lightheadedness since Friday. Related Data Home Medications Medication Instructions Recorded Confirmed aspirin 81 mg tablet,delayed 81 mg PO DAILY 08/25/19 09/05/22 release (Adult Low Dose Aspirin) calcium carbonate 600 mg calcium 600 mg PO DAILY 08/25/19 09/05/22 (1,500 mg) tablet (Calcium) oxybutynin chloride 5 mg 5 mg PO DAILY 08/25/19 08/30/22 tablet,extended release 24 hr rosuvastatin 10 mg tablet (Crestor) 10 mg PO DAILY 08/25/19 09/05/22 antiarthritic combination no.2 900 900 mg PO BID PRN pain 02/07/21 09/05/22 mg tablet (glucosamine-chondroitin) multivitamin (Daily Multi-Vitamin 1 tablet PO DAILY 02/07/21 08/30/22 tablet) meloxicam 15 mg tablet 15 mg PO DAILY PRN pain 09/05/22 09/05/22 Allergies Allergy/AdvReac Type Severity Reaction Status Date / Time rifaximin AdvReac Intermediate Diarrhea Verified 08/30/22 09:55 amoxicillin AdvReac Mild Nausea and Verified 09/05/22 08:49 Vomiting cefaclor AdvReac Mild Nausea and Verified 09/05/22 08:49 Vomiting clavulanic acid AdvReac Mild Nausea and Verified 08/30/22 09:55 Vomiting erythromycin base AdvReac Mild Nausea and Verified 09/05/22 08:49 Vomiting Penicillins AdvReac Mild Nausea and Verified 08/30/22 09:55 Vomiting cefuroxime AdvReac Diarrhea Verified 08/30/22 09:55 Review of Systems Review of Systems: All systems reviewed & are unremarkable except as noted in HPI and below PMFSH Past Medical History Medical History Anxiety Tang's palsy Bilateral carotid artery disease Depression Diverticulitis Diverticulosis Dyslipidemia Esophageal web Gastroesophageal reflux disease Hiatal hernia Hiatal hernia Irritable bowel syndrome with diarrhea Migraine headache Obstructive sleep apnea Optic neuritis Overactive bladder Paroxysmal atrial fibrillation Peptic ulcer Polio Surgical History Surgical History History of appendectomy History of bilateral cataract extraction History of cholecystectomy History of esophagogastroduodenoscopy History of hysterectomy History of loop recorder History of open reduction and internal fixation (ORIF) procedure Repair right ankle fracture. History of right breast biopsy History of sinus surgery Status post repair of paraesophageal diaphragmatic hernia Family History Family History Mother Lung cancer Father Heart disease Sibling Diabetes mellitus Son Lung cancer Social History Social History Social History: Surrogate medical decision maker: Code status: Full code. Smoking status: Never smoker Second hand tobacco smoke exposure: Yes Alcohol intake: never Substance use: never Substance use type: does not use Lack of Transportation: No Lack of Food: Never True Current Housing: I Have Housing Concerned About Future Housing: No Difficulty Paying Gas/Electric Bills: No Difficulty Paying for Meds: No Currently Unemployed: No Education: Associate Degree Difficulty w/ Childcare or Family Care: No Living arrangements: alone Additional living arrangements comments: .
[2022-09-05 08:56] LABS: INR 1.1; Prothrombin Time 13.7 Seconds (11.1-14.7)
[2022-09-05 08:57] LABS: Lactic Acid Reflex 2.4 mmol/L (0.7-2.0); Partial Thromboplastin Time 26.9 SECONDS (22.3-36.8)
--- NOTE | 2022-09-05 08:57 | ECG_ITS ---
Measurements Intervals [place] Rate: 159 P: IN: 0 QRS: -61 QRSD: 79 T: 43 QT: 256 QTc: 416 Interpretive Statements ATRIAL FLUTTER/TACHYCARDIA WITH RAPID VENTRICULAR RESPONSE MARKED LEFT AXIS DEVIATION [QRS AXIS < -30] MARKED ST DEPRESSION, CONSIDER SUBENDOCARDIAL INJURY [0.2+ mV ST DEPRESSION] NO PREVIOUS ECG AVAILABLE FOR COMPARISON Electronically Signed On 09-05-2022 10:47:54 CDT by Mariella Schuler M.D.
[2022-09-05 08:58] LABS: Magnesium 1.8 mg/dL (1.6-2.3)
[2022-09-05 08:59] LABS: Alanine Aminotransferase 21 U/L (6-35); Albumin Level 4.6 g/dL (3.5-5.1); Alkaline Phosphatase 75 U/L (38-126); Anion Gap 9 mmol/L (8-16); Aspartate Amino Transferase 30 U/L (14-36); Bilirubin,Total 0.8 mg/dL (0.2-1.3); Blood Urea Nitrogen 25 mg/dL (7-17); Calcium 9.8 mg/dL (8.4-10.2); Carbon Dioxide 29 mmol/L (22-30); Chloride 98 mmol/L (98-107); Estimated CRCL calculation 41 ml/min; Estimated Glomerular Filt Rate 60; Glucose 110 mg/dL (65-110); Potassium 4.2 mmol/L (3.4-5.0); Sodium 136 mmol/L (137-145)
--- NOTE | 2022-09-05 09:03 | PC.NURSE ---
Per EDP via verbal order readback. Hold the diltiazem drip. Pt. rhythm changed. Repeat EKG ordered.
[2022-09-05 09:09] LABS: Troponin I 0.019 ng/mL (0.000-0.034)
--- NOTE | 2022-09-05 09:10 | PC.NURSE ---
Per EDP via verbal order readback. Continue with administer the diltiazem drip
[2022-09-05] MEDS: dilTIAZem 100 MG/100 ML 100 MG/100 ML BAG IV CONT (09:16)
[2022-09-05 09:20] LABS: Influenza A QL RT-PCR Negative (Negative); Influenza B QL RT-PCR Negative (Negative); RSV RNA, RT-PCR Negative (Negative); SARS-CoV-2 RNA PCR Negative
--- NOTE | 2022-09-05 10:31 | ECG_ITS ---
Measurements Intervals [place] Rate: 79 P: 44 MD: 104 QRS: -42 QRSD: 79 T: 32 QT: 375 QTc: 430 Interpretive Statements SINUS RHYTHM WITH SHORT MD INTERVAL MARKED LEFT AXIS DEVIATION [QRS AXIS < -30] POSSIBLE RIGHT VENTRICULAR CONDUCTION DELAY [RSR (QR) IN V1/V2] COMPARED TO ECG 09/05/2022 09:03:16 NO SIGNIFICANT CHANGES Electronically Signed On 09-05-2022 10:50:18 CDT by Mariella Schuler M.D.
[2022-09-05 10:33] LABS: Appearance Urine Clear (Clear); Bacteria Urine None Seen /hpf; Bilirubin Urine Negative (Negative); Blood Urine Negative (Negative); Color Urine Yellow (Yellow); Glucose Urine UA Negative (Negative); Ketones Urine Trace mg/dL (Negative); Leukocyte Esterase Ur 1+ LEU/UL (Negative); Need Manual Microscopic Reviewed; Nitrate Urine Negative (Negative); Non Pathogenic Casts 0-2; Protein Urine Negative (Negative); RBC Urine 0-2 /hpf (0-2); Specific Grav Ur 1.025 (1.001-1.035); Squamous Epithelial Cell Urine None seen /hpf (Few); Urobilinogen Urine 0.2 mg/dL (<2.0); WBC Urine 0-5 /hpf
[2022-09-05 10:39] LABS: Add Urine Microscopic? YES
[2022-09-05] MEDS: metroNIDAZOLE 500 MG/ISO 100ML 500 MG/100 ML BAG 100 MG IVPB ×2 (10:50→21:34)
[2022-09-05 11:40] LABS: Reflex Lactic Acid Yes or No Add Lactic
[2022-09-05] MEDS: CIPROFLOXACIN 400 MG/D5W 200ML 200 ML 200 MG IVPB (11:53)
[2022-09-05] MEDS: METOCLOPRAMIDE HCL INJ 10 MG/2 ML VIAL IV PUSH (12:02)
[2022-09-05 12:18] LABS: Lactic Acid 0.8 mmol/L (0.7-2.0)
--- NOTE | 2022-09-05 13:45 | PM.IMHP ---
H&P: HPI History of Present Illness Date/Time: 09/05/22 13:45 Chief Complaint: Abdominal pain. Narrative: This is a very pleasant 82-year-old female with history of atrial/flutter fibrillation following hiatal hernia repair several years ago, GERD with history of peptic ulcers, dyslipidemia, untreated obstructive sleep apnea, and diverticulosis with history of diverticulitis who presented to the emergency department for evaluation of abdominal pain. Patient provides the following history. She developed cramping lower abdominal pain on Friday evening and she has had nausea, poor oral intake, and some loose stools since that time. She has not had much to eat in the last several days due to the symptoms. Additionally she has been feeling off balance and reports symptoms that sound both like lightheadedness and vertigo for the past 1 week and in fact she has been using her cane when ambulating due to feelings of being off balance. She reports that her gait has been ?staggering? but she also reports feelings as though she has lightheaded and that her vision (bilaterally) will occasionally darken when up walking. She decided to come in today for evaluation as her GI symptoms have not been improving and she is supposed to be going to [place] next week. On arrival to the emergency department she was in a narrow complex tachycardia with rates in the 160s to 170s. Modified vasovagal had no effect and she was given a dose of adenosine in which slowed her heart rate just enough that it a. She was in atrial flutter. She was given a Cardizem bolus and IV fluids and she converted back to a normal sinus rhythm. Interestingly she had absolutely no symptoms of the rapid heart rate and she specifically denied chest discomfort, sensations of racing heart, palpitations, and shortness of breath. Pertinent labs include a WBC count of 12.6, hemoglobin 16.1, hematocrit 40.6%, sodium 136, potassium 4.2, BUN 25, creatinine 0.90, calcium 9.5, magnesium 1.8, lactic acid 2.4, troponin 0.019, TSH 1.290. CT of the abdomen and pelvis showed distal colitis and she was given a dose of ciprofloxacin and metronidazole. She has since been admitted to the IMU for closer monitoring given the rapid atrial flutter. Of note she was previously on metoprolol but that was stopped a few months ago as she was having issues with dizziness and it was presumed that her blood pressures were dropping with standing. Review of Systems Review of Systems: Twelve systems were reviewed. She has lost about 9 lb in the last 1 week or so which she attributes to poor oral intake from decreased appetite. She denies sick contacts, recent travel, and recent antibiotic use. She has not noticed any blood or mucus in her stools. No vomiting. She has had some balance issues as detailed in HPI. No acute auditory visual changes, facial droop, or difficulty speaking or swallowing. She denies orthopnea and lower extremity edema. Very rarely does she wake up at night gasping for air but she has been waking up with a headache every day for quite some time. She was previously diagnosed with sleep apnea but did not tolerate PAP therapy. She had a sleep study done quite recently to see if she still has evidence of sleep apnea. 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 Rodriguez at [facility]. No history of CVA or TIA. Except as documented, all other systems were reviewed and are negative. 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 Rodriguez at [facility]. Depression Diverticulitis Diverticulosis Dyslipidemia Esophageal web Gastroesophageal reflux disease Hiatal hernia Irritable bowel syndrome with diarrhea Migraine headache Obstructive sleep apnea Optic neuritis Overactive bladder Paroxysmal atrial fibrillation Peptic ulcer [place]
[2022-09-05] MEDS: ACETAMINOPHEN 325 MG TABLET 650 MG PO ×2 (14:14→21:35)
--- NOTE | 2022-09-05 15:51 | PC.NURSE ---
This patient, Minda Meyer, was admitted to IMU Room 204-01 from ED at 1300. Patient/family oriented to hospital policies and general routines including ID bracelet, bed and alarms, visiting hours, pain management, procedures, bathroom and other care routines, personal items, smoking policy, room service/diet, and visiting hours. Information on how to activate the Rapid Response Team has been discussed. Patient/Family are encouraged to report perceived risks to care and to ask questions if they do not understand what they are told or what they should do.
--- NOTE | 2022-09-05 17:52 | WPDSLEEPSTUD ---
Sleep Study Date of Study: 08/12/2022 Ordering Provider: Deisy Torrez DO Interpreting Physician: Desiy Torrez DO Sleep Study Type: Polysomnogram Height: 1.68 m Weight: 56.9 kg Body Mass Index: 20.2 [place]: 7 Reason for Sleep Study PSG on 03/19/2016 at [facility] showed AHI of 3.7, RDI of 8.7. PLMI of 48.7; Prescribed CPAP but had it taken away due to non-compliance Sleep History The patient is an 82-year-old female with esophageal web, optic neuritis, chronic headaches, overactive bladder, GERD, hyperlipidemia and chronic back pain that had a sleep study ordered for evaluation of sleep apnea. The patient occasionally awakens from sleep short of breath. She frequently awakens at night with heartburn, belching or cough. He constantly snores loudly enough that others complain. She frequently has trouble sleeping when she has a cold. She occasionally wakes up gasping for air throughout the night. She denies sweating excessively at night. She occasionally has heart palpitations or irregular heartbeats during the night. She denies falling asleep during the day and while driving. He denies sleep paralysis, cataplexy and hypnagogic / hypnopompic hallucinations. She denies having trouble at school or work due to sleepiness. She denies feeling afraid of going to sleep. She rarely has nightmares. She rarely remembers her dreams. She occasionally has thoughts racing through her mind. He rarely feels sad or depressed. She frequently has anxiety. She rarely has muscular tension. She constantly notices parts of her body jerk. She constantly kicks during the night. She denies having crawling and aching feelings in her legs and denies having leg pain during the night. She denies grinding her teeth during sleep and denies awakening with morning jaw pain. She is frequently bothered by pain during the day and frequently awakened by pain during the night. She rarely wakes up feeling stiff in the morning. She occasionally wakes up with sore or achy muscles. She frequently wakes up with pain in her neck. She does not have a set wake-up time or set bedtime. She typically wakes up 4 times throughout the night for unknown reasons. When she awakens, she will get up and read. It can take her 30 minutes or several hours until she falls back asleep. She typically gets 6 hours of sleep per night. He currently lives with her 2 grandchildren. She denies consuming any caffeinated beverages within 2 hours of bedtime. She denies engaging in physical exercise before bedtime. She will read before falling asleep. She denies watching television before falling asleep. She denies taking naps in the afternoon or the evening. She consumes 8 oz of caffeinated soda per day. She will use marijuana at bedtime occasionally. She denies tobacco and alcohol use. [facility] Past Medical History Medical History Anxiety Tang's palsy Bilateral carotid artery disease Depression Diverticulitis Diverticulosis Dyslipidemia Esophageal web Gastroesophageal reflux disease Hiatal hernia Hiatal hernia Irritable bowel syndrome with diarrhea Migraine headache Obstructive sleep apnea Optic neuritis Overactive bladder Paroxysmal atrial fibrillation Peptic ulcer Polio Surgical History Surgical History History of appendectomy History of bilateral cataract extraction History of cholecystectomy History of esophagogastroduodenoscopy History of hysterectomy History of loop recorder History of open reduction and internal fixation (ORIF) procedure Repair right ankle fracture. History of right breast biopsy History of sinus surgery Status post repair of paraesophageal diaphragmatic hernia Family History Family History Mother Lung cancer Father Heart disease Sibling Norma
[2022-09-05] MEDS: SODIUM CHLORIDE 0.9% IV 1,000 ML 100 ML IV CONT (21:16)
[2022-09-05] MEDS: ALPRAZolam (*CRX) 0.5 MG TABLET PO (21:35)
[2022-09-06] VITALS (20 sets, daily range): BP systolic 80–128; BP diastolic 41–87; PULSE 65–89; RESP 16–18; TEMP 36.1–36.7; O2SAT 97–100
[2022-09-06] MEDS: ONDANSETRON HCL ODT 4 MG TABLET PO (01:30)
[2022-09-06] MEDS: ACETAMINOPHEN 325 MG TABLET 650 MG PO ×3 (03:37→17:59)
[2022-09-06] MEDS: metroNIDAZOLE 500 MG/ISO 100ML 500 MG/100 ML BAG 100 MG IVPB ×4 (03:45→20:24)
[2022-09-06 05:25] LABS: Hematocrit 38.2 % (37.0-47.0); Hemoglobin 12.3 g/dL (12.0-15.0); Mean Corpuscular HGB Conc 32.2 g/dl (32-36); Mean Corpuscular Hemoglobin 30.4 pg (26-34); Mean Corpuscular Volume 94.6 fl (80-100); Mean Platelet Volume 9.5 fl (7.4-10.4); Platelet Count Result 232 k/mm3 (150-375); Red Blood Count 4.04 M/mm3 (4.2-5.4); Red Cell Distribution Width 12.9 % (11.5-14.5); White Blood Count 7.1 K/mm3 (4.5-10.0)
[2022-09-06 05:38] LABS: Anion Gap 5 mmol/L (8-16); Blood Urea Nitrogen 16 mg/dL (7-17); Calcium 8.5 mg/dL (8.4-10.2); Carbon Dioxide 25 mmol/L (22-30); Chloride 107 mmol/L (98-107); Estimated CRCL calculation 57 ml/min; Estimated Glomerular Filt Rate > 60; Glucose 87 mg/dL (65-110); Magnesium 1.8 mg/dL (1.6-2.3); Potassium 4.2 mmol/L (3.4-5.0); Sodium 137 mmol/L (137-145)
[2022-09-06] MEDS: ROSUVASTATIN 10 MG TABLET PO (10:28)
[2022-09-06] MEDS: ASPIRIN 81 MG ENTERIC TABLET PO (10:29)
[2022-09-06] MEDS: CITALOPRAM HYDROBROMIDE 20 MG TABLET 40 MG PO (10:29)
[2022-09-06] MEDS: CALCIUM CARBONATE (OSCAL) 500 MG TABLET PO (10:30)
[2022-09-06] MEDS: ENOXAPARIN 40 MG/0.4 ML SYRINGE SUB-Q (10:32)
--- NOTE | 2022-09-06 12:23 | PM.CNCAR ---
Assessment and Plan Assessment and plan (1) Atrial flutter with rapid ventricular response: Code(s): I48.92 - Unspecified atrial flutter Status: Acute Plan This is an 82-year-old woman with a previous episode of atrial fib back in 2016 she now presents with what is felt to be colitis and coincident with that she was found to be in atrial flutter with 2-1 conduction and rapid ventricular response in the emergency room. It seems clear that she was not specifically symptomatic with her atrial flutter even though she was rather tachycardic. Had a long conversation with the patient and her son about the management of these arrhythmias and the medical concerns. At this point I am going to suggest trying to initiate therapy with sotalol at a modest dose of 40 mg q.12 hours as well as apixaban at a reduced dose of 2.5 mg q.12 hours given her age and weight under 60 kg. I will therefore recommend keeping her in the hospital for the next couple of days as sotalol was initiated. Will follow her with you and she will of course follow up with my partner after discharge as she has been. Michael Guillaume MD [facility] History of Present Illness History of Present Illness Consult date/time: 09/06/22 12:23 Reason For Visit: Colitis & Atrial Fibrillation Narrative: This is an 82-year-old woman I am seeing at the request of the hospitalist because of atrial flutter. The patient is unknown to me prior to this consult but is known to in follows actively with my partner, Dr. Newell. The patient states that she came to the emergency room yesterday but mainly because of symptoms of some abdominal discomfort nausea and loose stools that have been going on for several days. While she was in the emergency room she was noted to be tachycardic and her evaluation demonstrated evidence of atrial flutter with 2-1 conduction. She was treated with some adenosine which transiently slowed the rhythm and allow this diagnosis to be made. She was placed on intravenous diltiazem and shortly after that she reverted to sinus rhythm. She is in the IMU in sinus rhythm and a cardiac-moses is asymptomatic at this point. She has a history of an episode of atrial fibrillation back in 2015 that occurred while she was hospitalized for abdominal hernia surgery. She was seen in consultation to manage as an inpatient. It was hoped that this would be the only episode of this and she therefore was not anticoagulated her maintained on any antiarrhythmic medications. Her subsequent follow-up testing as an outpatient has demonstrated evidence of normal/vigorous looking left ventricular systolic function and she has had ischemia testing with nuclear stress testing showing no evidence of coronary disease. At her advanced age she still has an relatively active healthy lady she carries on normal activities of the day and does not report exertional chest pain dyspnea orthopnea PND or edema. She has had chronic difficulty with lightheadedness which in the past has been treated to orthostatic symptoms or at least that was a concern. She was placed on some midodrine for a while which her and added of causing difficulty with abdominal pain so the drug was discontinued. She has been told to use sodium chloride tablets for this. She was previously on a modest dose of metoprolol which was discontinued but she states the lightheadedness really did not change in any way when the medication was stopped. Review of Systems Constitutional: Constitutional: Reports no additional constitutional complaints Eyes: Eyes: Reports no additional eye complaints ENT: Reports system reviewed and no additional complaints, except as documented Cardiovascular: Cardiovascular: Reports no additional cardiovascular complaints Respiratory: Respiratory: Reports no additional respiratory complaints Gastrointestinal: Gastrointestinal: Reports as per HPI, Reports diarrhea and Reports nausea Musculoskeletal: Musculoskeletal:
--- NOTE | 2022-09-06 12:37 | PM.IMPN ---
Progress Note: A&P Assessment and Plan (1) Atrial flutter with rapid ventricular response: Code(s): I48.92 - Unspecified atrial flutter Status: Acute Assessment and Plan: Patient is now in sinus rhythm. Heart rate in the 70s and 80s. (2) Dizziness: Code(s): R42 - Dizziness and giddiness Status: Acute Assessment and Plan: Feeling somewhat better. Patient reports this is not an acute issue. She has had this before. (3) Colitis: Code(s): K52.9 - Noninfective gastroenteritis and colitis, unspecified Status: Acute Assessment and Plan: Continue IV antibiotics. (4) Dehydration: Code(s): E86.0 - Dehydration Status: Acute Assessment and Plan: IV fluids (5) Elevated lactic acid level: Code(s): R79.89 - Other specified abnormal findings of blood chemistry Status: Acute Assessment and Plan: Monitor (6) Left renal stone: Code(s): N20.0 - Calculus of kidney Status: Acute Assessment and Plan: A couple of small nonobstructing left renal stones were noted on CT. Not causing acute issues. (7) Bilateral hydronephrosis: Code(s): N13.30 - Unspecified hydronephrosis Status: Acute Assessment and Plan: CT shows bilateral mild hydronephrosis which may be related to bladder outlet obstruction or neurogenic bladder. She has been on oxybutynin for overactive bladder for many years and had her dose increased a couple of months ago. She does not have sensations of urinary retention. Renal ultrasound ordered for a.m.. Would benefit from seeing Urology as an outpatient. Subjective Date/time seen: 09/06/22 12:38 No complaints Exam Narrative: General: Well-developed, nontoxic-appearing female sitting up in bed in no acute distress. Weight: 56.9 kg. BMI: 20.2. HEENT: Slightly hard of hearing. PERRL, EOMI. Sclera anicteric. Tacky mucous membranes. Neck: Supple. Faint right carotid bruit. No JVD. Respiratory: Lungs are clear to auscultation bilaterally. Cardiovascular: Regular rate and rhythm with S1-S2. Gastrointestinal: Abdomen is soft and nondistended with positive bowel sounds. She is a bit tender to deeper palpation in the lower abdomen. No guarding or rebound tenderness. Skin: Warm and dry. No rash or lesions on limited exam. Extremities: No cyanosis, clubbing, or edema. Radial and pedal pulses intact. Neurological: Alert and oriented x4. Cranial nerves 2-12 are grossly intact. Speech is clear. No facial asymmetry. No pronator drift. Equal strength in upper and lower extremities. Psychiatric: Pleasant and cooperative with normal mood and affect. Judgment and insight intact. Objective Data Vital Signs Vital Signs: Vital Signs - 24 hr 09/05/22 13:16 09/05/22 14:00 09/05/22 14:00 Temperature 97.6 F Pulse Rate 85 79 Respiratory Rate 18 Blood Pressure 93/61 L Pulse Oximetry 98 98 Oxygen Delivery Room Air 09/05/22 16:00 09/05/22 16:00 09/05/22 16:00 Temperature 97.4 F L Pulse Rate 84 89 Respiratory Rate 16 Blood Pressure 123/45 L Pulse Oximetry 100 Oxygen Delivery Room Air 09/05/22 12:45 09/05/22 12:46 09/05/22 18:00 Temperature Pulse Rate 90 90 86 Respiratory Rate 16 19 Blood Pressure 107/68 Pulse Oximetry 98 97 Oxygen Delivery 09/05/22 20:00 09/05/22 20:00 09/06/22 00:00 Temperature 97.7 F 97.2 F L Pulse Rate 93 72 Respiratory Rate 19 18 Blood Pressure 129/54 L 119/54 L Pulse Oximetry 99 98 Oxygen Delivery Room Air 09/05/22 20:00 09/05/22 22:00 09/06/22 00:00 Temperature Pulse Rate 79 76 77 Respiratory Rate Blood Pressure Pulse Oximetry Oxygen Delivery 09/06/22 02:00 09/06/22 00:00 09/06/22 04:00 Temperature 97.5 F L Pulse Rate 75 89 Respiratory Rate 16 Blood Pressure 107/62 Pulse Oximetry 98 Oxygen Delivery Room Air 09/06/22 04:00 09/06/22 04:00 09/06/22 06
--- NOTE | 2022-09-06 15:22 | PCCCNOTE ---
On 09/06/22, the student, [Ragini Abdalla], provided care and completed [facility] documentation on this patient. I have reviewed the student's documentation and agree with the findings.
[2022-09-06] MEDS: FLUTICASONE PROPIONATE 0.05% NA SPR 16 GM BTL (*BKC) 2 SPRAY NASAL (17:59)
--- NOTE | 2022-09-06 20:01 | ECHO_ITS ---
Patient Info Name: Minda Meyer Age: 82 years : 1940 Gender: Female Ht: 66 in Wt: 125 lbs BSA: 1.62 m2 HR: 88 bpm BP: 107 / 62 mmHg Heart Rhythm: Sinus Rhythm Exam Date: 09/06/2022 8:46 AM Exam Location: [facility] Pulmonary Patient Status: Outpatient Admit Date: 09/05/2022 Staff Ordering Physician: Laura Holly PA-C Materials Tech: Carlos Maldonado, PRICILLA, RT Attending Provider: Ayala Martíenz DO Referring Physician: Avni RUSSELL; Exam Type: CA echo doppler color flow Study Info Indications - atrial tachycardia / RVR I49.8 - Other specified cardiac arrhythmias Complete two-dimensional, color flow and Doppler transthoracic echocardiogram is performed. Strain analysis performed. Summary 1. Complete two-dimensional, color flow and Doppler transthoracic echocardiogram is performed. 2. Technically somewhat difficult echocardiogram. 3. Normal left ventricular size with vigorous systolic function and grade 1 diastolic noncompliance. 4. Heavily calcified mitral valve annulus. 5. Severely dilated left atrium. Left Ventricle Left ventricular chamber dimension is normal. Left ventricular systolic function is hyperdynamic, estimated at >70%. The left ventricular diastolic function is grade I diastolic dysfunction. Right Ventricle Right ventricular chamber dimension is normal. Left Atria Left atrial chamber dimension is severely enlarged. Right Atria Right atrial chamber dimension is normal. Aortic Valve The aortic valve is not well visualized. There is mild aortic valve sclerosis. Pulmonic Valve The pulmonic valve is not well visualized. Mitral Valve The mitral valve has normal leaflets. There is no mitral valve regurgitation. The mitral valve annulus is severely calcified. Tricuspid Valve The tricuspid valve leaflets are normal. Pericardium/Pleural The pericardium appears normal. Aorta The aortic root size at the sinus of Valsalva is normal. Left Ventricular Outflow Tract Name Value Normal LVOT 2D LVOT Diameter 1.9 cm LVOT Doppler LVOT Peak Gradient 5 mmHg LVOT Mean Gradient 3 mmHg LVOT VTI 24 cm LVOT VTI/AV VTI Ratio 0.7 LVOT Stroke Volume 65 ml LVOT CO 5.9 l/min LVOT CI 3.7 l/min/m2 Mitral Valve Name Value Normal MV Doppler MV Decel Chaves 475 cm/s2 MV PHT 53 ms MV Area (PHT) 4.2 cm2 4.0-5.0 MV Diastolic Function MV E Peak Velocity 87 cm/s MV A Peak Velocity 99 cm/s
[2022-09-06] MEDS: APIXABAN 2.5 MG TABLET PO (20:23)
[2022-09-06] MEDS: SOTALOL HCL 40 MG TABLET PO (20:23)
--- NOTE | 2022-09-06 22:34 | ECG_ITS ---
Measurements Intervals [place] Rate: 65 P: 56 [place]: 106 QRS: -51 QRSD: 85 T: 35 QT: 401 QTc: 417 Interpretive Statements SINUS RHYTHM WITH SINUS ARRHYTHMIA WITH SHORT [place] INTERVAL LEFT AXIS DEVIATION NONSPECIFIC ST ABNORMALITY BORDERLINE ECG COMPARED TO ECG 09/05/2022 10:36:23 SINUS ARRHYTHMIA NOW PRESENT Electronically Signed On 09-07-2022 15:21:20 CDT by Lucio Renteria M.D.
[2022-09-07] VITALS (19 sets, daily range): BP systolic 84–138; BP diastolic 47–72; PULSE 58–87; RESP 14–18; TEMP 36.3–36.4; O2SAT 98–100
[2022-09-07] MEDS: ACETAMINOPHEN 325 MG TABLET 650 MG PO ×3 (01:28→20:35)
[2022-09-07] MEDS: metroNIDAZOLE 500 MG/ISO 100ML 500 MG/100 ML BAG 100 MG IVPB ×4 (02:35→20:37)
[2022-09-07] MEDS: MULTIVITAMINS THERAPEUTIC TAB (*BKC) 1 TABLET PO (08:21)
[2022-09-07] MEDS: ASPIRIN 81 MG ENTERIC TABLET PO (08:21)
[2022-09-07] MEDS: oxyBUTYnin CHLORIDE XL 5 MG TAB.ER.24 10 MG PO (08:21)
[2022-09-07] MEDS: CALCIUM CARBONATE (OSCAL) 500 MG TABLET PO (08:21)
[2022-09-07] MEDS: PANTOPRAZOLE 40 MG TABLET PO ×2 (08:21→16:53)
[2022-09-07] MEDS: CITALOPRAM HYDROBROMIDE 20 MG TABLET 40 MG PO (08:21)
[2022-09-07] MEDS: SOTALOL HCL 40 MG TABLET PO ×2 (08:21→20:34)
[2022-09-07] MEDS: ROSUVASTATIN 10 MG TABLET PO (08:22)
[2022-09-07] MEDS: APIXABAN 2.5 MG TABLET PO ×2 (08:23→20:35)
--- NOTE | 2022-09-07 10:30 | ECG_ITS ---
Measurements Intervals [place] Rate: 64 P: -12 SD: 117 QRS: -88 QRSD: 110 T: 29 QT: 430 QTc: 446 Interpretive Statements SINUS RHYTHM WITH SHORT [place] INTERVAL LEFT AXIS DEVIATION INCOMPLETE RIGHT BUNDLE BRANCH BLOCK BORDERLINE ECG COMPARED TO ECG 09/06/2022 22:48:40 INCOMPLETE RIGHT BUNDLE-BRANCH BLOCK NOW PRESENT Electronically Signed On 09-07-2022 15:32:26 CDT by Lucio Renteria M.D.
--- NOTE | 2022-09-07 12:33 | PM.IMPN ---
Progress Note: A&P Assessment and Plan (1) Atrial flutter with rapid ventricular response: Code(s): I48.92 - Unspecified atrial flutter Status: Acute Assessment and Plan: Rates are controlled Appreciate cardiology input Continue Eliquis and sotalol (2) Dizziness: Code(s): R42 - Dizziness and giddiness Status: Acute Assessment and Plan: Feeling somewhat better. Patient reports this is not an acute issue. She has had this before. (3) Colitis: Code(s): K52.9 - Noninfective gastroenteritis and colitis, unspecified Status: Acute Assessment and Plan: Continue IV antibiotics. (4) Dehydration: Code(s): E86.0 - Dehydration Status: Acute Assessment and Plan: IV fluids (5) Elevated lactic acid level: Code(s): R79.89 - Other specified abnormal findings of blood chemistry Status: Acute Assessment and Plan: Monitor (6) Left renal stone: Code(s): N20.0 - Calculus of kidney Status: Acute Assessment and Plan: A couple of small nonobstructing left renal stones were noted on CT. Not causing acute issues. (7) Bilateral hydronephrosis: Code(s): N13.30 - Unspecified hydronephrosis Status: Acute Assessment and Plan: CT shows bilateral mild hydronephrosis which may be related to bladder outlet obstruction or neurogenic bladder. She has been on oxybutynin for overactive bladder for many years and had her dose increased a couple of months ago. She does not have sensations of urinary retention. Renal ultrasound ordered for a.m.. Would benefit from seeing Urology as an outpatient. Subjective Date/time seen: 09/07/22 12:33 No complaints Exam Narrative: General: Well-developed, nontoxic-appearing female sitting up in bed in no acute distress. Weight: 56.9 kg. BMI: 20.2. HEENT: Slightly hard of hearing. PERRL, EOMI. Sclera anicteric. Tacky mucous membranes. Neck: Supple. Faint right carotid bruit. No JVD. Respiratory: Lungs are clear to auscultation bilaterally. Cardiovascular: Regular rate and rhythm with S1-S2. Gastrointestinal: Abdomen is soft and nondistended with positive bowel sounds. She is a bit tender to deeper palpation in the lower abdomen. No guarding or rebound tenderness. Skin: Warm and dry. No rash or lesions on limited exam. Extremities: No cyanosis, clubbing, or edema. Radial and pedal pulses intact. Neurological: Alert and oriented x4. Cranial nerves 2-12 are grossly intact. Speech is clear. No facial asymmetry. No pronator drift. Equal strength in upper and lower extremities. Psychiatric: Pleasant and cooperative with normal mood and affect. Judgment and insight intact. Objective Data Vital Signs Vital Signs: Vital Signs - 24 hr 09/06/22 14:00 09/06/22 16:00 09/06/22 16:00 Temperature 97.5 F L Pulse Rate 77 73 Respiratory Rate 16 Blood Pressure 126/54 L Pulse Oximetry 100 100 Oxygen Delivery Room Air 09/06/22 16:00 09/06/22 18:00 09/06/22 19:52 Temperature Pulse Rate 76 89 Respiratory Rate Blood Pressure 102/54 L Pulse Oximetry Oxygen Delivery 09/06/22 19:56 09/06/22 19:52 09/06/22 19:52 Temperature 97.3 F L Pulse Rate 80 Respiratory Rate 16 Blood Pressure 98/60 L 86/55 L 80/41 L Pulse Oximetry 97 Oxygen Delivery 09/06/22 20:23 09/06/22 20:00 09/06/22 20:00 Temperature Pulse Rate 80 74 Respiratory Rate Blood Pressure Pulse Oximetry 100 Oxygen Delivery Room Air 09/06/22 22:00 09/06/22 23:48 09/07/22 00:00 Temperature 96.9 F L Pulse Rate 73 65 58 L Respiratory Rate 16 Blood Pressure 117/57 L Pulse Oximetry 98 Oxygen Delivery 09/07/22 00:00 09/07/22 02:00 09/07/22 04:00 Temperature 97.5 F L Pulse Rate 65 65 Respiratory Rate 16 Blood Pressure 138/72 Pulse Oximetry 100 99 Oxygen Delivery Room Air 09/07/22 04:00 09/07/22 04:00
--- NOTE | 2022-09-07 14:29 | PM.PNCARD ---
Progress Note: A&P Assessment and Plan (1) Atrial flutter with rapid ventricular response: Code(s): I48.92 - Unspecified atrial flutter Status: Acute Assessment and Plan: Maintaining sinus rhythm on sotalol 40 mg q.12 hours. She is being followed with sotalol protocol with 12 lead ECG post dosing to monitor QTc interval. Continue systemic anticoagulation with Eliquis 2.5 mg twice daily or folic stroke risk reduction. She also has a history of paroxysmal atrial fibrillation. (2) Encounter for monitoring sotalol therapy: Code(s): Z51.81 - Encounter for therapeutic drug level monitoring; Z79.899 - Other usp (current) drug therapy Status: Acute Assessment and Plan: QT corrected stable thus far. She has received 2 doses of sotalol thus far. She will be monitored in the hospital for total 5 doses with QTC measured after each dose per protocol. Most recent QTC 446 milliseconds. Discussed plan of care great length. Patient verbalized understanding. Thus far she is tolerating management. (3) Orthostatic dizziness: Code(s): R42 - Dizziness and giddiness Status: Acute Assessment and Plan: Encourage patient to ambulate with assistance from nursing. Continue telemetry. Check orthostatic vital signs. Recommendation to follow as appropriate. (4) Carotid artery stenosis: Code(s): I65.29 - Occlusion and stenosis of unspecified carotid artery Status: Acute Assessment and Plan: Stable. Continue rosuvastatin, aspirin. (5) Dyslipidemia: Code(s): E78.5 - Hyperlipidemia, unspecified Status: Acute Assessment and Plan: Continue rosuvastatin 10 mg at bedtime. Goal LDL less than 70. (6) Chronic anticoagulation: Code(s): Z79.01 - assisted (current) use of anticoagulants Status: Acute Assessment and Plan: Continue Eliquis 2.5 mg twice daily for block stroke risk reduction. Weight less than 60 kg, age 82. Plan This is an 82-year-old woman with a previous episode of atrial fib back in 2016 she now presents with what is felt to be colitis and coincident with that she was found to be in atrial flutter with 2-1 conduction and rapid ventricular response in the emergency room. It seems clear that she was not specifically symptomatic with her atrial flutter even though she was rather tachycardic. Had a long conversation with the patient and her son about the management of these arrhythmias and the medical concerns. At this point I am going to suggest trying to initiate therapy with sotalol at a modest dose of 40 mg q.12 hours as well as apixaban at a reduced dose of 2.5 mg q.12 hours given her age and weight under 60 kg. I will therefore recommend keeping her in the hospital for the next couple of days as sotalol was initiated. Will follow her with you and she will of course follow up with my partner after discharge as she has been. Michael Guillaume MD [facility] Subjective Date/time seen: Date of service: 09/07/22 14:29 Follow-up for sotalol loading, atrial flutter and atrial fibrillation Patient has no complaints this morning. Denies palpitation, chest pain or shortness of breath. She denies dizziness at this time but states she is anxious about getting up moving around given her history of orthostatic symptoms. She is planning a trip to [place] in 1 week and was curious if she would be able to go. She follows with Dr. Newell as outpatient. She is maintaining sinus rhythm and tolerating sotalol 40 mg twice daily thus far. QT monitored stable and safe thus far. She is eating well and has no complaints. Review of Systems Review of Systems: Remainder review of systems unremarkable. Constitutional: Constitutional: Reports no additional constitutional complaints Eyes: Eyes: Reports no additional eye complaints ENT: Reports system reviewed and no additional complaints, except as documented Cardiovascular: Cardiovascular: Reports no
[2022-09-07] MEDS: FLUTICASONE PROPIONATE 0.05% NA SPR 16 GM BTL (*BKC) 2 SPRAY NASAL (20:36)
--- NOTE | 2022-09-07 21:39 | PC.NURSE ---
QTc on AM EKG 446. Third dose of Sotalol 40mg given at 2033. Will obtain follow-up EKG.
--- NOTE | 2022-09-07 21:45 | ECG_ITS ---
Measurements Intervals [place] Rate: 61 P: 24 [place]: 119 QRS: -63 QRSD: 96 T: 42 QT: 451 QTc: 454 Interpretive Statements SINUS RHYTHM WITH SHORT [place] INTERVAL BASELINE ARTIFACT LEFT ANTERIOR FASCICULAR BLOCK BORDERLINE ECG COMPARED TO ECG 09/07/2022 10:30:21 LEFT ANTERIOR FASCICULAR BLOCK NOW PRESENT Electronically Signed On 09-08-2022 13:43:10 CDT by Lucio Renteria M.D.
[2022-09-08] VITALS (20 sets, daily range): BP systolic 63–156; BP diastolic 31–89; PULSE 58–90; RESP 16–20; TEMP 36.1–37.2; O2SAT 96–100
[2022-09-08] MEDS: metroNIDAZOLE 500 MG/ISO 100ML 500 MG/100 ML BAG 100 MG IVPB ×4 (03:11→20:41)
[2022-09-08] MEDS: ONDANSETRON HCL ODT 4 MG TABLET PO ×2 (08:11→14:57)
[2022-09-08] MEDS: SOTALOL HCL 40 MG TABLET PO ×2 (09:14→20:40)
[2022-09-08] MEDS: oxyBUTYnin CHLORIDE XL 5 MG TAB.ER.24 10 MG PO (09:14)
[2022-09-08] MEDS: APIXABAN 2.5 MG TABLET PO ×2 (09:15→20:41)
[2022-09-08] MEDS: CITALOPRAM HYDROBROMIDE 20 MG TABLET 40 MG PO (09:15)
[2022-09-08] MEDS: CALCIUM CARBONATE (OSCAL) 500 MG TABLET PO (09:20)
[2022-09-08] MEDS: ASPIRIN 81 MG ENTERIC TABLET PO (09:20)
[2022-09-08] MEDS: MULTIVITAMINS THERAPEUTIC TAB (*BKC) 1 TABLET PO (09:21)
[2022-09-08] MEDS: PANTOPRAZOLE 40 MG TABLET PO ×2 (09:46→17:07)
[2022-09-08] MEDS: ROSUVASTATIN 10 MG TABLET PO (09:46)
[2022-09-08] MEDS: SODIUM CHLORIDE 0.9% IV 250 ML 100 ML (11:26)
--- NOTE | 2022-09-08 11:35 | ECG_ITS ---
Measurements Intervals [place] Rate: 79 P: 7 MT: 113 QRS: -43 QRSD: 88 T: 9 QT: 395 QTc: 453 Interpretive Statements SINUS RHYTHM WITH SHORT [place] INTERVAL BASELINE ARTIFACT LEFT AXIS DEVIATION BORDERLINE ECG COMPARED TO ECG 09/07/2022 21:43:58 LEFT-AXIS DEVIATION NOW PRESENT Electronically Signed On 09-09-2022 16:48:45 CDT by Lucio Renteria M.D.
--- NOTE | 2022-09-08 11:55 | PM.IMPN ---
Progress Note: A&P Assessment and Plan (1) Atrial flutter with rapid ventricular response: Code(s): I48.92 - Unspecified atrial flutter Status: Acute Assessment and Plan: Rates are controlled Appreciate cardiology input Continue Eliquis and sotalol Blood pressure is low. Question plan Cardiology. (2) Dizziness: Code(s): R42 - Dizziness and giddiness Status: Acute Assessment and Plan: Reports a little dizziness today. Question related to low blood pressure. Patient reports this is not an acute issue. She has had this before. (3) Colitis: Code(s): K52.9 - Noninfective gastroenteritis and colitis, unspecified Status: Acute Assessment and Plan: Continue IV antibiotics. (4) Dehydration: Code(s): E86.0 - Dehydration Status: Acute Assessment and Plan: IV fluids (5) Elevated lactic acid level: Code(s): R79.89 - Other specified abnormal findings of blood chemistry Status: Acute Assessment and Plan: Monitor (6) Left renal stone: Code(s): N20.0 - Calculus of kidney Status: Acute Assessment and Plan: A couple of small nonobstructing left renal stones were noted on CT. Not causing acute issues. (7) Bilateral hydronephrosis: Code(s): N13.30 - Unspecified hydronephrosis Status: Acute Assessment and Plan: CT shows bilateral mild hydronephrosis which may be related to bladder outlet obstruction or neurogenic bladder. She has been on oxybutynin for overactive bladder for many years and had her dose increased a couple of months ago. She does not have sensations of urinary retention. Renal ultrasound ordered for a.m.. Would benefit from seeing Urology as an outpatient. Subjective Date/time seen: 09/08/22 11:55 Patient had low blood pressure this morning. Little bit dizzy as well. Heart rate is controlled Exam Narrative: General: Well-developed, nontoxic-appearing female sitting up in bed in no acute distress. Weight: 56.9 kg. BMI: 20.2. HEENT: Slightly hard of hearing. PERRL, EOMI. Sclera anicteric. Tacky mucous membranes. Neck: Supple. Faint right carotid bruit. No JVD. Respiratory: Lungs are clear to auscultation bilaterally. Cardiovascular: Regular rate and rhythm with S1-S2. Gastrointestinal: Abdomen is soft and nondistended with positive bowel sounds. She is a bit tender to deeper palpation in the lower abdomen. No guarding or rebound tenderness. Skin: Warm and dry. No rash or lesions on limited exam. Extremities: No cyanosis, clubbing, or edema. Radial and pedal pulses intact. Neurological: Alert and oriented x4. Cranial nerves 2-12 are grossly intact. Speech is clear. No facial asymmetry. No pronator drift. Equal strength in upper and lower extremities. Psychiatric: Pleasant and cooperative with normal mood and affect. Judgment and insight intact. Objective Data Vital Signs Vital Signs: Vital Signs - 24 hr 09/07/22 12:00 09/07/22 12:00 09/07/22 15:52 Temperature Pulse Rate 63 Respiratory Rate Blood Pressure Pulse Oximetry 100 100 Oxygen Delivery Room Air Room Air 09/07/22 14:00 09/07/22 16:00 09/07/22 16:00 Temperature 97.5 F L Pulse Rate 87 65 63 Respiratory Rate 16 Blood Pressure 105/58 L Pulse Oximetry 99 Oxygen Delivery 09/07/22 18:00 09/07/22 20:34 09/07/22 20:00 Temperature 97.4 F L Pulse Rate 76 62 71 Respiratory Rate 18 Blood Pressure 126/56 L Pulse Oximetry 100 Oxygen Delivery 09/07/22 20:00 09/07/22 20:00 09/07/22 22:00 Temperature Pulse Rate 63 65 Respiratory Rate Blood Pressure Pulse Oximetry 100 Oxygen Delivery Room Air 09/08/22 00:00 09/08/22 00:00 09/08/22 00:55 Temperature 97.0 F L Pulse Rate 68 Respiratory Rate 18 Blood Pressure 132/57 L 132/57 L 156/46 H Pulse Oximetry 96 Oxygen Delivery 09/08/22 00:55 09/08/22 00:00 09/08/22 00:
--- NOTE | 2022-09-08 12:30 | PM.PNCARD ---
Progress Note: A&P Assessment and Plan (1) Atrial flutter with rapid ventricular response: Code(s): I48.92 - Unspecified atrial flutter Status: Acute Assessment and Plan: Maintaining sinus rhythm on sotalol 40 mg q.12 hours. She is being followed with sotalol protocol with 12 lead ECG post dosing to monitor QTc interval. Continue systemic anticoagulation with Eliquis 2.5 mg twice daily or folic stroke risk reduction. She also has a history of paroxysmal atrial fibrillation. (2) Encounter for monitoring sotalol therapy: Code(s): Z51.81 - Encounter for therapeutic drug level monitoring; Z79.899 - Other halfway (current) drug therapy Status: Acute Assessment and Plan: QT corrected stable thus far. She has received 4 doses of sotalol thus far. She will be monitored in the hospital for total 5 doses with QTC measured after each dose per protocol. Most recent QTC 454 milliseconds after last evening's dose. Discussed plan of care great length. Patient verbalized understanding. Check CBC and BMP. (3) Orthostatic dizziness: Code(s): R42 - Dizziness and giddiness Status: Acute Assessment and Plan: Patient more significant orthostatic and symptomatic. Give IV fluid bolus, repeat orthostatics. If she remains orthostatic and symptomatic give additional IV fluid support. Given ongoing diarrhea and treatment for colitis suspect this will stabilize as she improves clinically. Encourage patient to ambulate with assistance from nursing. Continue telemetry. She has not tolerated midodrine in the past. Fludrocortisone may be another consideration. (4) Carotid artery stenosis: Code(s): I65.29 - Occlusion and stenosis of unspecified carotid artery Status: Acute Assessment and Plan: Stable. Continue rosuvastatin, aspirin. (5) Dyslipidemia: Code(s): E78.5 - Hyperlipidemia, unspecified Status: Acute Assessment and Plan: Continue rosuvastatin 10 mg at bedtime. Goal LDL less than 70. (6) Chronic anticoagulation: Code(s): Z79.01 - assisted (current) use of anticoagulants Status: Acute Assessment and Plan: Continue Eliquis 2.5 mg twice daily for block stroke risk reduction. Weight less than 60 kg, age 82. Plan This is an 82-year-old woman with a previous episode of atrial fib back in 2016 she now presents with what is felt to be colitis and coincident with that she was found to be in atrial flutter with 2-1 conduction and rapid ventricular response in the emergency room. It seems clear that she was not specifically symptomatic with her atrial flutter even though she was rather tachycardic. Had a long conversation with the patient and her son about the management of these arrhythmias and the medical concerns. At this point I am going to suggest trying to initiate therapy with sotalol at a modest dose of 40 mg q.12 hours as well as apixaban at a reduced dose of 2.5 mg q.12 hours given her age and weight under 60 kg. I will therefore recommend keeping her in the hospital for the next couple of days as sotalol was initiated. Will follow her with you and she will of course follow up with my partner after discharge as she has been. Michael Guillaume MD [facility] Subjective Date/time seen: Date of service: 09/08/22 12:30 Follow-up for atrial flutter, sotalol load, orthostatic hypotension Patient feeling more dizzy or unstable with position change. Significant orthostasis documented lying systolic blood pressure 100 standing 63 mm Hg systolic. While her colitis symptoms are improving she still has some abdominal discomfort and diarrhea. She feels dehydrated. Patient indicates she did not tolerate midodrine in the past as it made her feel sick. No palpitations, chest pain or shortness of breath. Maintaining sinus rhythm, tolerating sotalol thus far otherwise. QT interval acceptable. Review of Systems Review of Systems: Remainder of
[2022-09-08 13:24] LABS: Hematocrit 40.4 % (37.0-47.0); Hemoglobin 13.5 g/dL (12.0-15.0); Mean Corpuscular HGB Conc 33.4 g/dl (32-36); Mean Corpuscular Hemoglobin 31.3 pg (26-34); Mean Corpuscular Volume 93.5 fl (80-100); Mean Platelet Volume 9.5 fl (7.4-10.4); Platelet Count Result 250 k/mm3 (150-375); Red Blood Count 4.32 M/mm3 (4.2-5.4); White Blood Count 7.2 K/mm3 (4.5-10.0)
[2022-09-08 13:44] LABS: Anion Gap 5 mmol/L (8-16); Blood Urea Nitrogen 10 mg/dL (7-17); Calcium 8.6 mg/dL (8.4-10.2); Carbon Dioxide 27 mmol/L (22-30); Chloride 104 mmol/L (98-107); Estimated CRCL calculation 60 ml/min; Estimated Glomerular Filt Rate > 60; Glucose 129 mg/dL (65-110); Magnesium 1.5 mg/dL (1.6-2.3); Potassium 2.9 mmol/L (3.4-5.0); Sodium 136 mmol/L (137-145)
[2022-09-08] MEDS: MAGNESIUM SULF 2 GM/WATER 50ML 2 GM/50 ML BAG IVPB (14:55)
[2022-09-08] MEDS: POTASSIUM CHLORIDE 20 MEQ PACKET (FOR LIQUID) 40 MEQ PO ×2 (14:56→20:42)
[2022-09-08] MEDS: FLUTICASONE PROPIONATE 0.05% NA SPR 16 GM BTL (*BKC) 2 SPRAY NASAL (20:42)
--- NOTE | 2022-09-08 21:12 | PC.NURSE ---
QTc 454 after morning dose of Sotalol. Dose #5 given at 2145, 40 mg PO.
--- NOTE | 2022-09-08 21:30 | ECG_ITS ---
Measurements Intervals [place] Rate: 78 P: 16 AR: 117 QRS: -42 QRSD: 85 T: 29 QT: 380 QTc: 435 Interpretive Statements SINUS RHYTHM WITH SHORT AR INTERVAL LEFT AXIS DEVIATION BORDERLINE ECG COMPARED TO ECG 09/08/2022 11:35:14 NO SIGNIFICANT CHANGES Electronically Signed On 09-09-2022 16:54:54 CDT by Lucio Renteria M.D.
[2022-09-09] VITALS (18 sets, daily range): BP systolic 77–117; BP diastolic 38–58; PULSE 57–87; RESP 16–20; TEMP 36.1–36.5; O2SAT 97–100
[2022-09-09] MEDS: ACETAMINOPHEN 325 MG TABLET 650 MG PO ×2 (00:40→20:06)
[2022-09-09] MEDS: metroNIDAZOLE 500 MG/ISO 100ML 500 MG/100 ML BAG 100 MG IVPB ×2 (02:23→08:51)
[2022-09-09] MEDS: ONDANSETRON HCL ODT 4 MG TABLET PO ×2 (02:28→23:55)
[2022-09-09 05:37] LABS: Anion Gap 1 mmol/L (8-16); Blood Urea Nitrogen 9 mg/dL (7-17); Calcium 8.5 mg/dL (8.4-10.2); Carbon Dioxide 28 mmol/L (22-30); Chloride 107 mmol/L (98-107); Estimated CRCL calculation 60 ml/min; Estimated Glomerular Filt Rate > 60; Glucose 106 mg/dL (65-110); Potassium 4.4 mmol/L (3.4-5.0); Sodium 136 mmol/L (137-145)
[2022-09-09] MEDS: SOTALOL HCL 40 MG TABLET PO ×2 (08:50→20:06)
[2022-09-09] MEDS: ROSUVASTATIN 10 MG TABLET PO (08:50)
[2022-09-09] MEDS: PANTOPRAZOLE 40 MG TABLET PO ×2 (08:51→17:29)
[2022-09-09] MEDS: ASPIRIN 81 MG ENTERIC TABLET PO (08:51)
[2022-09-09] MEDS: CITALOPRAM HYDROBROMIDE 20 MG TABLET 40 MG PO (08:51)
[2022-09-09] MEDS: oxyBUTYnin CHLORIDE XL 5 MG TAB.ER.24 10 MG PO (08:51)
[2022-09-09] MEDS: MULTIVITAMINS THERAPEUTIC TAB (*BKC) 1 TABLET PO (08:51)
[2022-09-09] MEDS: APIXABAN 2.5 MG TABLET PO ×2 (08:51→20:05)
[2022-09-09] MEDS: CALCIUM CARBONATE (OSCAL) 500 MG TABLET PO (08:51)
--- NOTE | 2022-09-09 09:19 | PM.PNCARD ---
Progress Note: A&P Assessment and Plan (1) Atrial flutter with rapid ventricular response: Code(s): I48.92 - Unspecified atrial flutter <BEBE Montiel - Last Filed: 09/09/22 12:36> Status: Acute <BEBE Montiel - Last Filed: 09/09/22 12:36> Assessment and Plan: Maintaining sinus rhythm on sotalol 40 mg q.12 hours. Her sotalol load was complete last night with 5th dose. She Continue systemic anticoagulation with Eliquis 2.5 mg twice daily for stroke risk reduction. She also has a history of paroxysmal atrial fibrillation. 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 Sotalol load complete. <BEBE Montiel - Last Filed: 09/09/22 12:36> (3) Orthostatic dizziness: Code(s): R42 - Dizziness and giddiness <BEBE Montiel - Last Filed: 09/09/22 12:36> Status: Acute <BEBE Montiel - Last Filed: 09/09/22 12:36> Assessment and Plan: Patient more significant orthostatic and symptomatic. Will give some more IV hydration, still having some diarrhea. Encourage patient to ambulate with assistance from nursing. Continue telemetry. She has not tolerated midodrine in the past. Fludrocortisone may be another consideration. <BEBE Montiel - Last Filed: 09/09/22 12:36> (4) Carotid artery stenosis: Code(s): I65.29 - Occlusion and stenosis of unspecified carotid artery <BEBE Montiel - Last Filed: 09/09/22 12:36> Status: Acute <BEBE Montiel - Last Filed: 09/09/22 12:36> Assessment and Plan: Stable. Continue rosuvastatin, aspirin. <BEBE Montiel - Last Filed: 09/09/22 12:36> (5) Dyslipidemia: Code(s): E78.5 - Hyperlipidemia, unspecified <BEBE Montiel - Last Filed: 09/09/22 12:36> Status: Acute <BEBE Montiel - Last Filed: 09/09/22 12:36> Assessment and Plan: Continue rosuvastatin 10 mg at bedtime. Goal LDL less than 70. <BEBE Montiel - Last Filed: 09/09/22 12:36> (6) Chronic anticoagulation: Code(s): Z79.01 - skilled nursing (current) use of anticoagulants <BEBE Montiel - Last Filed: 09/09/22 12:36> Status: Acute <BEBE Montiel - Last Filed: 09/09/22 12:36> Assessment and Plan: Continue Eliquis 2.5 mg twice daily for block stroke risk reduction. Weight less than 60 kg, age 82. <BEBE Montiel - Last Filed: 09/09/22 12:36> Assessment and Plan: Attending Addendum: I have personally seen and examined this patient at bedside. I agree with the above documentation and plan of care as outlined. -Patient is a complicated woman with atrial fibrillation tolerating sotalol well safely completed loading with acceptable QT corrected interval. She is maintaining sinus rhythm. Patient continues to be orthostatic although her symptoms are improving. Her diarrhea is resolving and she is eating well. She was hypokalemic and hypomagnesemic which was successfully repleted. Exam: NAD, A&Ox3, nonfocal neuro exam No JVD Lungs CTA bilaterally Cardio RRR, S1/S2 Abd soft, NT/ND, +BS Ext no edema, clubbing, or cyanosis Plan of Care: Monitor orthostatic vital signs. Agree with additional IV fluid support. Continue sotalol 40 mg twice daily. Patient is willing to try midodrine again in believes her symptoms may actually have been related to colitis as opposed to midodrine itself. Will initiate midodrine 2.5 mg 3 times daily and observe tolerance. Recommendations to follow. <Lucio Renteria MD - Last Filed: 09/09/22 16:38> Subjecti
[2022-09-09] MEDS: SODIUM CHLORIDE 0.9% IV 1,000 ML 100 ML IV CONT ×2 (11:30→21:47)
--- NOTE | 2022-09-09 12:19 | PM.IMPN ---
Progress Note: A&P Assessment and Plan (1) Atrial flutter with rapid ventricular response: Code(s): I48.92 - Unspecified atrial flutter Status: Acute Assessment and Plan: Rates are controlled Appreciate cardiology input Continue Eliquis and sotalol Blood pressure is low. Question plan Cardiology. Will give IV fluids and start midodrine. Monitor blood pressure today (2) Dizziness: Code(s): R42 - Dizziness and giddiness Status: Acute Assessment and Plan: Reports a little dizziness today. Question related to low blood pressure. Patient reports this is not an acute issue. She has had this before. (3) Colitis: Code(s): K52.9 - Noninfective gastroenteritis and colitis, unspecified Status: Acute Assessment and Plan: Transition to oral antibiotics (4) Dehydration: Code(s): E86.0 - Dehydration Status: Acute Assessment and Plan: IV fluids (5) Elevated lactic acid level: Code(s): R79.89 - Other specified abnormal findings of blood chemistry Status: Acute Assessment and Plan: Monitor (6) Left renal stone: Code(s): N20.0 - Calculus of kidney Status: Acute Assessment and Plan: A couple of small nonobstructing left renal stones were noted on CT. Not causing acute issues. (7) Bilateral hydronephrosis: Code(s): N13.30 - Unspecified hydronephrosis Status: Acute Assessment and Plan: CT shows bilateral mild hydronephrosis which may be related to bladder outlet obstruction or neurogenic bladder. She has been on oxybutynin for overactive bladder for many years and had her dose increased a couple of months ago. She does not have sensations of urinary retention. Renal ultrasound ordered for a.m.. Would benefit from seeing Urology as an outpatient. Subjective Date/time seen: 09/09/22 12:19 No complaints Exam Narrative: General: Well-developed, nontoxic-appearing female sitting up in bed in no acute distress. Weight: 56.9 kg. BMI: 20.2. HEENT: Slightly hard of hearing. PERRL, EOMI. Sclera anicteric. Tacky mucous membranes. Neck: Supple. Faint right carotid bruit. No JVD. Respiratory: Lungs are clear to auscultation bilaterally. Cardiovascular: Regular rate and rhythm with S1-S2. Gastrointestinal: Abdomen is soft and nondistended with positive bowel sounds. She is a bit tender to deeper palpation in the lower abdomen. No guarding or rebound tenderness. Skin: Warm and dry. No rash or lesions on limited exam. Extremities: No cyanosis, clubbing, or edema. Radial and pedal pulses intact. Neurological: Alert and oriented x4. Cranial nerves 2-12 are grossly intact. Speech is clear. No facial asymmetry. No pronator drift. Equal strength in upper and lower extremities. Psychiatric: Pleasant and cooperative with normal mood and affect. Judgment and insight intact. Objective Data Vital Signs Vital Signs: Vital Signs - 24 hr 09/08/22 14:00 09/08/22 16:00 09/08/22 16:00 Temperature 97.5 F L Pulse Rate 58 L 77 Respiratory Rate 16 Blood Pressure 105/44 L Pulse Oximetry 100 Oxygen Delivery Room Air 09/08/22 16:00 09/08/22 18:00 09/08/22 20:40 Temperature Pulse Rate 78 68 71 Respiratory Rate Blood Pressure Pulse Oximetry Oxygen Delivery 09/08/22 20:00 09/08/22 20:00 09/08/22 20:47 Temperature 97.8 F Pulse Rate 67 Respiratory Rate 20 Blood Pressure 119/53 L 119/53 L 112/49 L Pulse Oximetry 98 Oxygen Delivery 09/08/22 20:47 09/08/22 20:47 09/08/22 20:00 Temperature 97.8 F Pulse Rate 67 66 Respiratory Rate 20 Blood Pressure 89/31 L 119/53 L Pulse Oximetry 98 Oxygen Delivery 09/08/22 20:00 09/08/22 22:00 09/08/22 23:09 Temperature 97.7 F Pulse Rate 71 68 Respiratory Rate 18 Blood Pressure 109/54 L Pulse Oximetry 98 98 Oxygen Delivery Room Air 09/09/22 00:00 09/09/22 00:00 09/09/22 0
[2022-09-09] MEDS: MIDODRINE HCL 2.5 MG TABLET PO ×2 (12:56→17:28)
[2022-09-09] MEDS: metroNIDAZOLE 250 MG TABLET 500 MG PO ×2 (17:28→21:48)
[2022-09-09] MEDS: levoFLOXacin 750 MG TABLET PO (20:05)
[2022-09-09] MEDS: FLUTICASONE PROPIONATE 0.05% NA SPR 16 GM BTL (*BKC) 2 SPRAY NASAL (20:08)
[2022-09-10] VITALS (23 sets, daily range): BP systolic 97–133; BP diastolic 43–66; PULSE 63–93; RESP 18–20; TEMP 36.1–36.6; O2SAT 95–99
[2022-09-10] MEDS: ACETAMINOPHEN 325 MG TABLET 650 MG PO ×2 (03:29→20:17)
[2022-09-10] MEDS: metroNIDAZOLE 250 MG TABLET 500 MG PO ×3 (05:24→20:18)
[2022-09-10 05:49] LABS: Hematocrit 39.4 % (37.0-47.0); Hemoglobin 12.9 g/dL (12.0-15.0); Mean Corpuscular HGB Conc 32.7 g/dl (32-36); Mean Corpuscular Volume 94.7 fl (80-100); Mean Platelet Volume 9.7 fl (7.4-10.4); Platelet Count Result 207 k/mm3 (150-375); Red Blood Count 4.16 M/mm3 (4.2-5.4); Red Cell Distribution Width 13.2 % (11.5-14.5); White Blood Count 6.5 K/mm3 (4.5-10.0)
[2022-09-10 05:59] LABS: Anion Gap 3 mmol/L (8-16); Blood Urea Nitrogen 14 mg/dL (7-17); Calcium 8.1 mg/dL (8.4-10.2); Carbon Dioxide 29 mmol/L (22-30); Chloride 107 mmol/L (98-107); Estimated CRCL calculation 60 ml/min; Estimated Glomerular Filt Rate > 60; Glucose 107 mg/dL (65-110); Potassium 4.3 mmol/L (3.4-5.0); Sodium 139 mmol/L (137-145)
[2022-09-10] MEDS: SODIUM CHLORIDE 0.9% IV 1,000 ML 100 ML IV CONT (08:12)
[2022-09-10] MEDS: CITALOPRAM HYDROBROMIDE 20 MG TABLET 40 MG PO (08:14)
[2022-09-10] MEDS: ONDANSETRON HCL ODT 4 MG TABLET PO ×2 (08:14→20:17)
[2022-09-10] MEDS: MULTIVITAMINS THERAPEUTIC TAB (*BKC) 1 TABLET PO (08:14)
[2022-09-10] MEDS: APIXABAN 2.5 MG TABLET PO ×2 (08:14→20:16)
[2022-09-10] MEDS: ASPIRIN 81 MG ENTERIC TABLET PO (08:14)
[2022-09-10] MEDS: CALCIUM CARBONATE (OSCAL) 500 MG TABLET PO (08:14)
[2022-09-10] MEDS: ROSUVASTATIN 10 MG TABLET PO (08:14)
[2022-09-10] MEDS: oxyBUTYnin CHLORIDE XL 5 MG TAB.ER.24 10 MG PO (08:14)
[2022-09-10] MEDS: SOTALOL HCL 40 MG TABLET PO ×2 (08:14→20:16)
[2022-09-10] MEDS: PANTOPRAZOLE 40 MG TABLET PO ×2 (08:15→17:33)
[2022-09-10] MEDS: MIDODRINE HCL 2.5 MG TABLET PO ×3 (08:15→17:33)
[2022-09-10] MEDS: FLUTICASONE PROPIONATE 0.05% NA SPR 16 GM BTL (*BKC) 2 SPRAY NASAL (08:15)
--- NOTE | 2022-09-10 11:20 | PM.IMPN ---
Progress Note: A&P Assessment and Plan (1) Atrial flutter with rapid ventricular response: Code(s): I48.92 - Unspecified atrial flutter Status: Acute Assessment and Plan: Rates are controlled Appreciate cardiology input Continue Eliquis and sotalol Status post IV fluids for low blood pressure and orthostatic hypotension. Likely an acute on chronic issue. Midodrine started yesterday. Will monitor 1 more day. (2) Dizziness: Code(s): R42 - Dizziness and giddiness Status: Acute Assessment and Plan: Reports a little dizziness today. Question related to low blood pressure. Patient reports this is not an acute issue. She has had this before. Exacerbated by orthostatic hypotension. Continue midodrine, monitor blood pressure 1 more day (3) Colitis: Code(s): K52.9 - Noninfective gastroenteritis and colitis, unspecified Status: Acute Assessment and Plan: Transition to oral antibiotics Improved. Still having occasional diarrhea. (4) Dehydration: Code(s): E86.0 - Dehydration Status: Acute Assessment and Plan: Monitor (5) Elevated lactic acid level: Code(s): R79.89 - Other specified abnormal findings of blood chemistry Status: Acute Assessment and Plan: Monitor (6) Left renal stone: Code(s): N20.0 - Calculus of kidney Status: Acute Assessment and Plan: A couple of small nonobstructing left renal stones were noted on CT. Not causing acute issues. (7) Bilateral hydronephrosis: Code(s): N13.30 - Unspecified hydronephrosis Status: Acute Assessment and Plan: CT shows bilateral mild hydronephrosis which may be related to bladder outlet obstruction or neurogenic bladder. She has been on oxybutynin for overactive bladder for many years and had her dose increased a couple of months ago. She does not have sensations of urinary retention. Renal ultrasound ordered for a.m.. Would benefit from seeing Urology as an outpatient. Subjective Date/time seen: 09/10/22 11:20 Orthostatic blood pressure has improved. Still mildly symptomatic. Exam Narrative: General: Well-developed, nontoxic-appearing female sitting up in bed in no acute distress. Weight: 56.9 kg. BMI: 20.2. HEENT: Slightly hard of hearing. PERRL, EOMI. Sclera anicteric. Tacky mucous membranes. Neck: Supple. Faint right carotid bruit. No JVD. Respiratory: Lungs are clear to auscultation bilaterally. Cardiovascular: Regular rate and rhythm with S1-S2. Gastrointestinal: Abdomen is soft and nondistended with positive bowel sounds. She is a bit tender to deeper palpation in the lower abdomen. No guarding or rebound tenderness. Skin: Warm and dry. No rash or lesions on limited exam. Extremities: No cyanosis, clubbing, or edema. Radial and pedal pulses intact. Neurological: Alert and oriented x4. Cranial nerves 2-12 are grossly intact. Speech is clear. No facial asymmetry. No pronator drift. Equal strength in upper and lower extremities. Psychiatric: Pleasant and cooperative with normal mood and affect. Judgment and insight intact. Objective Data Vital Signs Vital Signs: Vital Signs - 24 hr 09/09/22 12:00 09/09/22 12:00 09/09/22 14:00 Temperature 97.3 F L Pulse Rate 69 64 81 Respiratory Rate 16 Blood Pressure 117/48 L Pulse Oximetry 100 Oxygen Delivery 09/09/22 12:00 09/09/22 16:00 09/09/22 16:00 Temperature Pulse Rate 87 Respiratory Rate Blood Pressure Pulse Oximetry Oxygen Delivery Room Air Room Air 09/09/22 16:00 09/09/22 18:00 09/09/22 20:06 Temperature 97.7 F Pulse Rate 67 71 85 Respiratory Rate 16 Blood Pressure 98/58 L Pulse Oximetry 98 Oxygen Delivery 09/09/22 20:00 09/09/22 20:00 09/09/22 20:23 Temperature 97.0 F L Pulse Rate 72 Respiratory Rate 20 Blood Pressure 99/56 L 99/56 L 101/47 L Pulse Oximetry 98 Oxygen Delivery 04
--- NOTE | 2022-09-10 13:28 | PM.PNCARD ---
Progress Note: A&P Assessment and Plan (1) Atrial flutter with rapid ventricular response: Code(s): I48.92 - Unspecified atrial flutter Status: Acute Assessment and Plan: Maintaining sinus rhythm on sotalol 40 mg q.12 hours. Continue sotalol 40 mg twice daily. She Continue systemic anticoagulation with Eliquis 2.5 mg twice daily for stroke risk reduction. She also has a history of paroxysmal atrial fibrillation. She had very brief episodes of probable atrial flutter of which she was asymptomatic overnight. 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 Sotalol load complete. No issues at this time. (3) Orthostatic dizziness: Code(s): R42 - Dizziness and giddiness Status: Acute Assessment and Plan: Patient feeling better and less orthostatic although remains symptomatic despite IV fluid. Midodrine 2.5 mg t.i.d. initiated. Will observe tolerance. If colitis symptoms persist with diarrhea she may require additional IV hydration. Encourage patient to ambulate with assistance from nursing. Continue telemetry. (4) Carotid artery stenosis: Code(s): I65.29 - Occlusion and stenosis of unspecified carotid artery Status: Acute Assessment and Plan: Stable. Continue rosuvastatin, aspirin. (5) Dyslipidemia: Code(s): E78.5 - Hyperlipidemia, unspecified Status: Acute Assessment and Plan: Continue rosuvastatin 10 mg at bedtime. Goal LDL less than 70. 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 Weight less than 60 kg, age 82. Plan . Subjective Date/time seen: Date of service: 09/10/22 13:28 Follow-up for orthostatic hypotension, paroxysmal atrial fibrillation Patient states she did not feel well last night was jittery, shaky and felt quite lightheaded. She was afebrile, vitals are stable she remained in sinus rhythm. On telemetry she had 2 brief episodes of atrial flutter likely lasting mere seconds of which she was asymptomatic. She feels better this morning still little lightheaded. She notes her diarrhea has picked up a bit. Afebrile. She is less orthostatic, apparently tolerating midodrine reasonably well thus far. Occasional nausea which was present before midodrine was initiated. She believes she is going to cancel her trip to [place] at the end of this week and needs us to fill out paperwork for her insurance that she is unable to safely proceed which is very reasonable and potentially could put her at significant adverse risk. Review of Systems Review of Systems: Remainder of the review of systems is otherwise negative aside from that noted in the HPI. All systems reviewed & are unremarkable except as noted in HPI and below Constitutional: Constitutional: Reports no additional constitutional complaints Eyes: Eyes: Reports no additional eye complaints ENT: Reports system reviewed and no additional complaints, except as documented Cardiovascular: Cardiovascular: Reports no additional cardiovascular complaints Respiratory: Respiratory: Reports no additional respiratory complaints Gastrointestinal: Gastrointestinal: Reports as per HPI, Reports diarrhea and Reports nausea Genitourinary: Genitourinary: Reports as per HPI Musculoskeletal: Musculoskeletal: Reports no additional musculoskeletal complaints Integumentary/Breasts: Skin/Breast: Reports system reviewed and no additional complaints, except as docu Neurologic: Reports system reviewed and no additional complaints, except as documented Psychiatric: Psychiatric: Reports no additional psychiatric complaints and Reports as per
[2022-09-10] MEDS: levoFLOXacin 750 MG TABLET PO (20:16)
[2022-09-11] VITALS (24 sets, daily range): BP systolic 70–131; BP diastolic 38–62; PULSE 58–90; RESP 18–20; TEMP 35.6–36.3; O2SAT 96–99
[2022-09-11] MEDS: metroNIDAZOLE 250 MG TABLET 500 MG PO ×3 (06:07→20:17)
[2022-09-11] MEDS: ROSUVASTATIN 10 MG TABLET PO (08:12)
[2022-09-11] MEDS: MIDODRINE HCL 2.5 MG TABLET PO ×2 (08:12→13:51)
[2022-09-11] MEDS: MULTIVITAMINS THERAPEUTIC TAB (*BKC) 1 TABLET PO (08:12)
[2022-09-11] MEDS: CITALOPRAM HYDROBROMIDE 20 MG TABLET 40 MG PO (08:12)
[2022-09-11] MEDS: oxyBUTYnin CHLORIDE XL 5 MG TAB.ER.24 10 MG PO (08:12)
[2022-09-11] MEDS: APIXABAN 2.5 MG TABLET PO ×2 (08:12→20:17)
[2022-09-11] MEDS: SOTALOL HCL 40 MG TABLET PO ×2 (08:12→20:17)
[2022-09-11] MEDS: PANTOPRAZOLE 40 MG TABLET PO ×2 (08:13→16:59)
[2022-09-11] MEDS: CALCIUM CARBONATE (OSCAL) 500 MG TABLET PO (08:13)
[2022-09-11] MEDS: ASPIRIN 81 MG ENTERIC TABLET PO (08:14)
--- NOTE | 2022-09-11 15:54 | PM.PNCARD ---
Progress Note: A&P Assessment and Plan (1) Atrial flutter with rapid ventricular response: Code(s): I48.92 - Unspecified atrial flutter Status: Acute Assessment and Plan: Maintaining sinus rhythm on sotalol 40 mg q.12 hours. Continue sotalol 40 mg twice daily. Continue systemic anticoagulation with Eliquis 2.5 mg twice daily for stroke risk reduction. She also has a history of paroxysmal atrial fibrillation. (2) Encounter for monitoring sotalol therapy: Code(s): Z51.81 - Encounter for therapeutic drug level monitoring; Z79.899 - Other assisted (current) drug therapy Status: Acute Assessment and Plan: QT corrected stable thus far. Sotalol load complete. No issues at this time. (3) Orthostatic dizziness: Code(s): R42 - Dizziness and giddiness Status: Acute Assessment and Plan: Patient feeling better and less orthostatic although remains symptomatic. Increase midodrine to 5 mg 3 times daily and observe response. Observed overnight and if further improved and she is comfortable going home anticipate discharge home tomorrow morning. May discontinue telemetry. (4) Carotid artery stenosis: Code(s): I65.29 - Occlusion and stenosis of unspecified carotid artery Status: Acute Assessment and Plan: Stable. Continue rosuvastatin, aspirin. (5) Dyslipidemia: Code(s): E78.5 - Hyperlipidemia, unspecified Status: Acute Assessment and Plan: Continue rosuvastatin 10 mg at bedtime. Goal LDL less than 70. (6) Chronic anticoagulation: Code(s): Z79.01 - [facility] (current) use of anticoagulants Status: Acute Assessment and Plan: Continue Eliquis 2.5 mg twice daily for block stroke risk reduction. Weight less than 60 kg, age 82. Plan . Subjective Date/time seen: Date of service: 09/11/22 15:54 Follow-up for atrial fibrillation, orthostatic hypotension Patient feeling better but still unstable requiring assistance to ambulate to the rest room. She would like to go home but feels she is not stable enough yet. She is tolerating midodrine. No chest pain or palpitations. Maintaining sinus rhythm. Review of Systems Review of Systems: Remainder of the review of systems is otherwise negative aside from that noted in the HPI. All systems reviewed & are unremarkable except as noted in HPI and below Constitutional: Constitutional: Reports no additional constitutional complaints Eyes: Eyes: Reports no additional eye complaints ENT: Reports system reviewed and no additional complaints, except as documented Cardiovascular: Cardiovascular: Reports no additional cardiovascular complaints Respiratory: Respiratory: Reports no additional respiratory complaints Gastrointestinal: Gastrointestinal: Reports as per HPI, Reports diarrhea and Reports nausea Genitourinary: Genitourinary: Reports as per HPI Musculoskeletal: Musculoskeletal: Reports no additional musculoskeletal complaints Integumentary/Breasts: Skin/Breast: Reports system reviewed and no additional complaints, except as docu Neurologic: Reports system reviewed and no additional complaints, except as documented Psychiatric: Psychiatric: Reports no additional psychiatric complaints and Reports as per HPI Endocrine: Endocrine: Reports no additional endocrine complaints Hematologic/Lymphatic: Hematologic/Lymphatic: Reports no additional hematologic/lymphatic complaints Allergic/Immunologic: Allergic/Immunologic: Reports no additional allergic/immunologic complaints Exam Narrative: General: Very pleasant female in no apparent distress sitting upright in a chair well developed, alert and oriented x3. No apparent distress, comfortable, pleasant, and cooperative. Head: atraumatic, normocephalic Eyes: EOM intact, sclerae anicteric, conjunctivae unremarkable Ears/Nose: external inspection of ears and nose were grossly normal Mouth/Throat: oral mucos
--- NOTE | 2022-09-11 16:28 | PM.IMPN ---
Progress Note: A&P Assessment and Plan (1) Atrial flutter with rapid ventricular response: Code(s): I48.92 - Unspecified atrial flutter Status: Acute Assessment and Plan: Rates are controlled Cardiology rounding Continue Eliquis and sotalol Pt hydrated with fluids IV Midodrine started yesterday. Continue to monitor orthostatics (2) Dizziness: Code(s): R42 - Dizziness and giddiness Status: Acute Assessment and Plan: Exacerbated by orthostatic hypotension. Continue midodrine (3) Colitis: Code(s): K52.9 - Noninfective gastroenteritis and colitis, unspecified Status: Acute Assessment and Plan: Transition to oral antibiotics (4) Dehydration: Code(s): E86.0 - Dehydration Status: Acute Assessment and Plan: Monitor (5) Elevated lactic acid level: Code(s): R79.89 - Other specified abnormal findings of blood chemistry Status: Acute Assessment and Plan: Monitor (6) Left renal stone: Code(s): N20.0 - Calculus of kidney Status: Acute Assessment and Plan: A couple of small nonobstructing left renal stones were noted on CT. Not causing acute issues. (7) Bilateral hydronephrosis: Code(s): N13.30 - Unspecified hydronephrosis Status: Acute Assessment and Plan: CT shows bilateral mild hydronephrosis which may be related to bladder outlet obstruction or neurogenic bladder. She has been on oxybutynin for overactive bladder for many years and had her dose increased a couple of months ago. Renal ultrasound ordered in hospital, which was negative Subjective Date/time seen: 09/11/22 16:28 82-year-old female with history of atrial/flutter fibrillation following hiatal hernia repair several years ago, GERD with history of peptic ulcers, dyslipidemia, untreated obstructive sleep apnea, and diverticulosis with history of diverticulitis who presented to the emergency department for evaluation of abdominal pain. Patient provides the following history. She developed cramping lower abdominal pain on Friday evening and she has had nausea, poor oral intake, and some loose stools since that time. She has not had much to eat in the last several days due to the symptoms. Additionally she has been feeling off balance and reports symptoms that sound both like lightheadedness and vertigo for the past 1 week and in fact she has been using her cane when ambulating due to feelings of being off balance. Pt is found to be hypotensive started on midodrine and JANICE stockings continue to monitor blood pressures Review of Systems Review of Systems: Dizzy on standing Exam Narrative: General: Well-developed, nontoxic-appearing female Respiratory: Lungs are clear to auscultation bilaterally. Cardiovascular: Regular rate and rhythm with S1-S2. Gastrointestinal: Abdomen is soft and nondistended with positive bowel sounds. Skin: Warm and dry. No rash or lesions on limited exam. Extremities: No cyanosis, clubbing, or edema. Radial and pedal pulses intact. Neurological: Alert and oriented x4. Cranial nerves 2-12 are grossly intact. Speech is clear. No facial asymmetry. No pronator drift. Equal strength in upper and lower extremities. Psychiatric: Pleasant and cooperative with normal mood and affect. Judgment and insight intact. Objective Data Vital Signs Vital Signs: Vital Signs - 24 hr 09/10/22 17:05 09/10/22 18:00 09/10/22 20:16 Temperature 36.4 C L Pulse Rate 73 73 68 Respiratory Rate 20 Blood Pressure 125/49 L Pulse Oximetry 99 Oxygen Delivery 09/10/22 20:17 09/10/22 20:00 09/10/22 20:00 Temperature 36.6 C 36.3 C L Pulse Rate 70 Respiratory Rate 18 Blood Pressure 125/46 L 125/46 L Pulse Oximetry 97 Oxygen Delivery 09/10/22 20:26 09/10/22 20:26 09/10/22 23:52 Temperature 36.1 C L Pulse Rate 73 Respiratory Rate 18 Blood Pressure 118/57 L
[2022-09-11] MEDS: MIDODRINE HCL 2.5 MG TABLET 5 MG PO (16:59)
[2022-09-11] MEDS: ACETAMINOPHEN 325 MG TABLET 650 MG PO ×2 (17:06→20:18)
[2022-09-11] MEDS: levoFLOXacin 750 MG TABLET PO (20:17)
[2022-09-11] MEDS: ONDANSETRON HCL ODT 4 MG TABLET PO (20:18)
[2022-09-12] VITALS (17 sets, daily range): BP systolic 74–120; BP diastolic 36–59; PULSE 57–76; RESP 16–22; TEMP 35.6–37; O2SAT 97–99
[2022-09-12] MEDS: metroNIDAZOLE 250 MG TABLET 500 MG PO ×3 (06:04→21:05)
[2022-09-12] MEDS: PANTOPRAZOLE 40 MG TABLET PO ×2 (08:39→17:35)
[2022-09-12] MEDS: MIDODRINE HCL 2.5 MG TABLET 5 MG PO ×3 (08:39→17:35)
[2022-09-12] MEDS: oxyBUTYnin CHLORIDE XL 5 MG TAB.ER.24 10 MG PO (08:39)
[2022-09-12] MEDS: CALCIUM CARBONATE (OSCAL) 500 MG TABLET PO (08:39)
[2022-09-12] MEDS: ROSUVASTATIN 10 MG TABLET PO (08:40)
[2022-09-12] MEDS: SOTALOL HCL 40 MG TABLET PO ×2 (08:40→21:05)
[2022-09-12] MEDS: APIXABAN 2.5 MG TABLET PO ×2 (08:40→21:06)
[2022-09-12] MEDS: CITALOPRAM HYDROBROMIDE 20 MG TABLET 40 MG PO (08:40)
[2022-09-12] MEDS: MULTIVITAMINS THERAPEUTIC TAB (*BKC) 1 TABLET PO (08:40)
[2022-09-12] MEDS: ASPIRIN 81 MG ENTERIC TABLET PO (08:45)
--- NOTE | 2022-09-12 12:01 | PM.PNCARD ---
Progress Note: A&P Assessment and Plan (1) Atrial flutter with rapid ventricular response: Code(s): I48.92 - Unspecified atrial flutter Status: Acute Assessment and Plan: Maintaining sinus rhythm on sotalol 40 mg q.12 hours. Continue sotalol 40 mg twice daily. Continue systemic anticoagulation with Eliquis 2.5 mg twice daily for stroke risk reduction. (2) Encounter for monitoring sotalol therapy: Code(s): Z51.81 - Encounter for therapeutic drug level monitoring; Z79.899 - Other retirement (current) drug therapy Status: Acute Assessment and Plan: QT corrected stable thus far. Sotalol load complete. No issues at this time. (3) Orthostatic dizziness: Code(s): R42 - Dizziness and giddiness Status: Acute Assessment and Plan: Unfortunately still with symptomatic orthostasis. Increase midodrine to 5mg 3 times daily and observe response. Can consider adding florinef if persistent orthostasis. Tolerating midodrine so far. May discontinue telemetry. (4) Carotid artery stenosis: Code(s): I65.29 - Occlusion and stenosis of unspecified carotid artery Status: Acute Assessment and Plan: Stable. Continue rosuvastatin, aspirin. (5) Dyslipidemia: Code(s): E78.5 - Hyperlipidemia, unspecified Status: Acute Assessment and Plan: Continue rosuvastatin 10 mg at bedtime. Goal LDL less than 70. (6) Chronic anticoagulation: Code(s): Z79.01 - longterm (current) use of anticoagulants Status: Acute Assessment and Plan: Continue Eliquis 2.5 mg twice daily for block stroke risk reduction. Weight less than 60 kg, age 82. Plan . Subjective Date/time seen: 09/12/22 12:01 Cardiology follow up for atrial fibrillation, orthostatic hypotension She is still significantly orthostatic this morning and dizzy. She has no other complaints at this time. Review of Systems Review of Systems: All systems reviewed & are unremarkable except as noted in HPI and below Constitutional: Constitutional: Reports no additional constitutional complaints Eyes: Eyes: Reports no additional eye complaints ENT: Reports system reviewed and no additional complaints, except as documented Cardiovascular: Cardiovascular: Reports no additional cardiovascular complaints Respiratory: Respiratory: Reports no additional respiratory complaints Gastrointestinal: Gastrointestinal: Reports as per HPI, Reports diarrhea and Reports nausea Genitourinary: Genitourinary: Reports as per HPI Musculoskeletal: Musculoskeletal: Reports no additional musculoskeletal complaints Integumentary/Breasts: Skin/Breast: Reports system reviewed and no additional complaints, except as docu Neurologic: Reports system reviewed and no additional complaints, except as documented Psychiatric: Psychiatric: Reports no additional psychiatric complaints and Reports as per HPI Endocrine: Endocrine: Reports no additional endocrine complaints Hematologic/Lymphatic: Hematologic/Lymphatic: Reports no additional hematologic/lymphatic complaints Allergic/Immunologic: Allergic/Immunologic: Reports no additional allergic/immunologic complaints Exam Const: General: comfortable and no acute distress Other: Pleasant elderly lady comfortable sitting on the edge of the bed HENMT: Mouth: Yes moist mucous membranes Eyes: Sclera: sclerae normal Pupils: Equal, round and reactive pupils present Neck: Neck: supple and no JVD Other: Carotid pulses are intact and normal in character bilaterally there are no audible bruits Resp: Effort & Inspection: normal respiratory effort Auscultation: clear to auscultation bilaterally Cardio: Rate: regular rate Rhythm: regular rhythm Heart sounds: no murmurs GI: Auscultation: normal bowel sounds Other: Soft nontender nondistended Skin: General skin exam: normal color Neuro: Cranial nerves: Yes Equal, round and reactive pupils present Other:
--- NOTE | 2022-09-12 12:17 | PM.IMPN ---
Progress Note: A&P Assessment and Plan (1) Atrial flutter with rapid ventricular response: Code(s): I48.92 - Unspecified atrial flutter Status: Acute Assessment and Plan: Maintaining sinus rhythm on sotalol 40 mg q.12 hours. Continue sotalol 40 mg twice daily. Continue systemic anticoagulation with Eliquis 2.5 mg twice daily for stroke risk reduction. She also has a history of paroxysmal atrial fibrillation. (2) Orthostatic dizziness: Code(s): R42 - Dizziness and giddiness Status: Acute Assessment and Plan: Patient feeling better and less orthostatic although remains symptomatic. Increased midodrine to 5 mg 3 times daily and observe response. (3) Carotid artery stenosis: Code(s): I65.29 - Occlusion and stenosis of unspecified carotid artery Status: Acute Assessment and Plan: Stable. Continue rosuvastatin, aspirin. (4) Dyslipidemia: Code(s): E78.5 - Hyperlipidemia, unspecified Status: Acute Assessment and Plan: Continue rosuvastatin 10 mg at bedtime. Goal LDL less than 70. 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 Plan . Subjective Date/time seen: 09/12/22 12:17 Patient stated he she was still feeling dizzy this morning Review of Systems Review of Systems: All systems reviewed & are unremarkable except as noted in HPI and below Constitutional: Constitutional: Reports no additional constitutional complaints Eyes: Eyes: Reports no additional eye complaints ENT: Reports system reviewed and no additional complaints, except as documented Cardiovascular: Cardiovascular: Reports no additional cardiovascular complaints Respiratory: Respiratory: Reports no additional respiratory complaints Gastrointestinal: Gastrointestinal: Reports as per HPI, Reports diarrhea and Reports nausea Genitourinary: Genitourinary: Reports as per HPI Musculoskeletal: Musculoskeletal: Reports no additional musculoskeletal complaints Integumentary/Breasts: Skin/Breast: Reports system reviewed and no additional complaints, except as docu Neurologic: Reports system reviewed and no additional complaints, except as documented Psychiatric: Psychiatric: Reports no additional psychiatric complaints and Reports as per HPI Endocrine: Endocrine: Reports no additional endocrine complaints Hematologic/Lymphatic: Hematologic/Lymphatic: Reports no additional hematologic/lymphatic complaints Allergic/Immunologic: Allergic/Immunologic: Reports no additional allergic/immunologic complaints Exam Const: General: comfortable and no acute distress Other: Pleasant elderly lady comfortable sitting on the edge of the bed HENMT: Mouth: Yes moist mucous membranes Eyes: Sclera: sclerae normal Pupils: Equal, round and reactive pupils present Neck: Neck: supple and no JVD Other: Carotid pulses are intact and normal in character bilaterally there are no audible bruits Resp: Effort & Inspection: normal respiratory effort Auscultation: clear to auscultation bilaterally Cardio: Rate: regular rate Rhythm: regular rhythm Heart sounds: no murmurs Other: PMI is nondisplaced and of normal activity there is a 4th heart sound audible no murmur no rub GI: Auscultation: normal bowel sounds Other: Soft nontender nondistended Skin: General skin exam: normal color Neuro: Cranial nerves: Yes Equal, round and reactive pupils present Other: Alert and oriented x3, nonfocal Extrem: Other: No edema, good distal pulses 2+ bilaterally Psych: Other: Mood calm and appropriate Objective Data Vital Signs Vital Signs: Vital Signs - 24 hr 09/11/22 14:00 09/11/22 15:35 09/11/22 16:00 Temperature 96.9 F L Pulse Rate 67 64 Respiratory Rate 18 Blood Pressure 109/49 L Pulse Oximetry 97 98 Oxygen De
[2022-09-12] MEDS: ACETAMINOPHEN 325 MG TABLET 650 MG PO ×2 (12:23→21:05)
--- NOTE | 2022-09-12 13:48 | PCCCNOTE ---
On 09/12/22, the student, [Ragini Abdalla], provided care and completed [facility] documentation on this patient. I have reviewed the student's documentation and agree with the findings.
--- NOTE | 2022-09-12 17:13 | PC.NURSE ---
Addendum entered by Miranda Chacko RN 09/12/22 17:13: All belongings sent with patient Original Note: This patient, Minda Meyer, was transferred to [ [facility]] on 09/12/22 at 1713. Personal belongings sent with patient. Report given to [ CATRINA Martinez @ [id number]]. Appropriate documentation sent with patient.
[2022-09-12] MEDS: levoFLOXacin 750 MG TABLET PO (21:05)
[2022-09-13] MEDS: ACETAMINOPHEN 325 MG TABLET 650 MG PO (04:40)
[2022-09-13 06:00] VITALS: BP 116/63; PULSE 64; RESP 16; TEMP 35.7; O2SAT 99
[2022-09-13] MEDS: metroNIDAZOLE 250 MG TABLET 500 MG PO (06:20)
[2022-09-13] MEDS: APIXABAN 2.5 MG TABLET PO (08:07)
[2022-09-13] MEDS: oxyBUTYnin CHLORIDE XL 5 MG TAB.ER.24 10 MG PO (08:08)
[2022-09-13] MEDS: MIDODRINE HCL 2.5 MG TABLET 5 MG PO (08:08)
[2022-09-13] MEDS: CALCIUM CARBONATE (OSCAL) 500 MG TABLET PO (08:08)
[2022-09-13] MEDS: CITALOPRAM HYDROBROMIDE 20 MG TABLET 40 MG PO (08:08)
[2022-09-13] MEDS: MULTIVITAMINS THERAPEUTIC TAB (*BKC) 1 TABLET PO (08:08)
[2022-09-13 08:09] VITALS: PULSE 86
[2022-09-13] MEDS: ROSUVASTATIN 10 MG TABLET PO (08:09)
[2022-09-13] MEDS: SOTALOL HCL 40 MG TABLET PO (08:09)
[2022-09-13] MEDS: PANTOPRAZOLE 40 MG TABLET PO (08:09)
[2022-09-13 09:32] VITALS: BP 112/59; PULSE 69; RESP 17; TEMP 36.7; O2SAT 99
[2022-09-13 09:34] VITALS: BP 107/56; PULSE 74; O2SAT 99
[2022-09-13 09:39] VITALS: BP 89/48; PULSE 74; O2SAT 100
--- NOTE | 2022-09-13 10:35 | PM.DS ---
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 Status: Acute (4) Gastroesophageal reflux disease: Code(s): K21.9 - Gastro-esophageal reflux disease without esophagitis Status: Acute (5) Anxiety: Code(s): F41.9 - Anxiety disorder, unspecified Status: Acute (6) Colitis: Code(s): K52.9 - Noninfective gastroenteritis and colitis, unspecified Status: Acute DS: Summary Hospital Course Hospital Course: This is a very pleasant 82-year-old female with history of atrial/flutter fibrillation following hiatal hernia repair several years ago, GERD with history of peptic ulcers, dyslipidemia, untreated obstructive sleep apnea, and diverticulosis with history of diverticulitis who presented to the emergency department for evaluation of abdominal pain, nausea, poor oral intake, and some loose stools. Additionally she has been feeling off balance and reports symptoms that sound both like lightheadedness and vertigo for the past 1 week. On arrival to the emergency department she was in a narrow complex tachycardia with rates in the 160s to 170s. Modified vasovagal had no effect and she was given a dose of adenosine in which slowed her heart rate just enough that it a. She was in atrial flutter. She was given a Cardizem bolus and IV fluids and she converted back to a normal sinus rhythm. Pertinent labs include a WBC count of 12.6, hemoglobin 16.1, hematocrit 40.6%, sodium 136, potassium 4.2, BUN 25, creatinine 0.90, calcium 9.5, magnesium 1.8, lactic acid 2.4, troponin 0.019, TSH 1.290. CT of the abdomen and pelvis showed distal colitis and she was given a dose of ciprofloxacin and metronidazole. She has since been admitted to the IMU for closer monitoring given the rapid atrial flutter. For an atrial flutter cardiology was consulted. They started the patient on sotalol which converted her to sinus rhythm. They also started on Eliquis. Patient was having orthostatic hypotension so cardiology started on midodrine. Midodrine has helped but she still has some orthostatic hypotension so we will increase the dose to 10 mg p.o. t.i.d.. Patient is otherwise stable and is being discharged home with oral Levaquin and Flagyl for 2 more days to finish the course for colitis. She does not have any diarrhea. Time Spent with Patient Time attestation: Total time spent providing and/or coordinating discharge services: Exam Const: General: comfortable and no acute distress Other: Pleasant elderly lady comfortable sitting on the edge of the bed HENMT: Mouth: Yes moist mucous membranes Eyes: Sclera: sclerae normal Pupils: Equal, round and reactive pupils present Neck: Neck: supple and no JVD Other: Carotid pulses are intact and normal in character bilaterally there are no audible bruits Resp: Effort & Inspection: normal respiratory effort Auscultation: clear to auscultation bilaterally Cardio: Rate: regular rate Rhythm: regular rhythm Heart sounds: no murmurs Other: PMI is nondisplaced and of normal activity there is a 4th heart sound audible no murmur no rub GI: Auscultation: normal bowel sounds Other: Soft nontender nondistended Skin: General skin exam: normal color Neuro: Cranial nerves: Yes Equal, round and reactive pupils present Other: Alert and oriented x3, nonfocal Extrem: Other: No edema, good distal pulses 2+ bilaterally Psych: Other: Mood calm and appropriate Discharge Plan Discharge Consulting providers: Lynsey Perla Discharging Clinician: Edison Yanez
--- NOTE | 2022-09-15 09:44 | PC.NURSE ---
patient called to say that midodrine pills are almost gone. she is taking 4 pills 3 times a day (for a total of 12/day) and the supply is running low. new script for 10 mg tid total of 90 to give her one month supply sent to [facility] pharmacy per Dr. Yanez. Patient aware that she will need to follow up with her primary doctor and let her doctor know of her stay
== END 2022-09-13 13:20 | disposition home or self-care (01) | DRG 309 ==
LOC: ANHED 08:47 → ANHIMU 12:32 → ANH3MEDSUR 09-12 17:19
PROVIDERS: Internal Medicine; Internal Medicine Cardiovascular Disease; Physician Assistant; Admitting Provider Student in an Organized Health Care Education/Training Program; Emergency Provider Emergency Medicine; PCP Internal Medicine; Visit Provider Hospitalist
DX: I48.91 Unspecified atrial fibrillation (principal); N13.30 Unspecified hydronephrosis; K52.9 Noninfective gastroenteritis and colitis, unspecified; I48.92 Unspecified atrial flutter; I95.1 Orthostatic hypotension; K21.9 Gastro-esophageal reflux disease without esophagitis; F41.9 Anxiety disorder, unspecified; G47.33 Obstructive sleep apnea (adult) (pediatric); N20.0 Calculus of kidney; E86.0 Dehydration; E78.5 Hyperlipidemia, unspecified; Z20.822 Contact with and (suspected) exposure to COVID-19; Z79.899 Other long term (current) drug therapy; Z79.01 Long term (current) use of anticoagulants; Z88.0 Allergy status to penicillin; Z88.1 Allergy status to other antibiotic agents
CPT/HCPCS: 36415; 70450; 71045; 74177; 76775; 80048; 80053; 81001; 83605; 83735; 84443; 84484; 85025; 85027; 85610; 85730; 87045; 87269; 87272; 87427; 87637; 93005; 93306; 96365; 96366; 96367; 96372; 96375; 96376; 99285; A9270; C1751; G0378; J0153; J0461; J0744; J1650; J1956; J2765; J3475; J7030; J7050; Q9967

== ENCOUNTER 2022-10-25 14:32 | Outpatient (CLI) | payer MEDICARE, SELFPAY ==
[2022-10-25 14:57] LABS: Hematocrit 39.1 % (37.0-47.0); Hemoglobin 12.7 g/dL (12.0-15.0); Mean Corpuscular HGB Conc 32.5 g/dl (32-36); Mean Corpuscular Hemoglobin 30.4 pg (26-34); Mean Corpuscular Volume 93.5 fl (80-100); Mean Platelet Volume 9.8 fl (7.4-10.4); Platelet Count Result 212 k/mm3 (150-375); Red Blood Count 4.18 M/mm3 (4.2-5.4); Red Cell Distribution Width 13.1 % (11.5-14.5)
[2022-10-25 15:10] LABS: Alanine Aminotransferase 15 U/L (6-35); Albumin Level 3.9 g/dL (3.5-5.1); Alkaline Phosphatase 53 U/L (38-126); Anion Gap 3 mmol/L (8-16); Aspartate Amino Transferase 27 U/L (14-36); Bilirubin,Total 0.3 mg/dL (0.2-1.3); Blood Urea Nitrogen 22 mg/dL (7-17); Calcium 9.2 mg/dL (8.4-10.2); Carbon Dioxide 34 mmol/L (22-30); Chloride 103 mmol/L (98-107); Estimated Glomerular Filt Rate > 60; Glucose 102 mg/dL (65-110); Potassium 4.4 mmol/L (3.4-5.0); Sodium 140 mmol/L (137-145)
== END 2022-10-25 14:33 | disposition home or self-care (01) ==
PROVIDERS: PCP Internal Medicine; Visit Provider Nurse Practitioner Family
DX: K52.9 Noninfective gastroenteritis and colitis, unspecified (principal)
CPT/HCPCS: 36415; 80053; 85027

== ENCOUNTER 2022-11-02 21:30 | Emergency (ER) | payer MEDICARE, SELFPAY ==
--- NOTE | ~2022-11-02 | CT_ITS ---
CT of the Abdomen and Pelvis: Indication: Abdominal pain Technique: 2.5 mm axial scans were obtained through the abdomen and pelvis following intravenous adm inistration of 100 cc of Omnipaque 350. Dose reduction technique was used on this scan by utilizing a utomated exposure control and iterative reconstruction technique. The dose-length product (DLP) was 3 65.38 mGy-cm. COMPARISON: 09/05/2022 Findings: Scans through the lung bases demonstrate moderate to large hiatal hernia. The liver, spleen, pancreas, adrenals and kidneys are within normal limits. Cholecystectomy clips are noted. There are atherosclerotic calcifications of the aorta. No lymphadenopathy. There is a large amount of stool distending the cecum, ascending colon,, transverse colon, as well as the splenic flexure, with a relative transition point in the proximal descending colon. The distal d escending colon and sigmoid colon are relatively decompressed. Images through the pelvis were performed. Small left-sided urinary bladder diverticula are noted. No other pelvic mass seen. No ascites. Impression: Large amount of stool in the cecum, ascending colon, transverse colon, splenic flexure, transition po int in the proximal descending colon. Distal descending colon sigmoid colon are decompressed. Finding s are consistent with an element of large bowel obstruction, which may be due to stricture versus gilbert plastic lesion. Consider colonoscopy to further evaluate/directly inspected. Moderate to large hiatal hernia. Small left-sided urinary bladder diverticula. Reviewed, dictated and finalized at location . Impression: Large amount of stool in the cecum, ascending colon, transverse colon, splenic flexure, transition point in the proximal descending colon. Distal descending c olon sigmoid colon are decompressed. Findings are consistent with an element of large bowel obstruction, which may be due to stricture versus neoplastic lesio n. Consider colonoscopy to further evaluate/directly inspected. Moderate to large hiatal hernia. Small left-sided urinary bladder diverticula.
[2022-11-02 21:43] VITALS: BP 101/64; PULSE 86; RESP 18; TEMP 37.1; O2SAT 96
[2022-11-02 22:01] LABS: Basophils Absolute Auto 0.1 K/mm3 (0.0-0.1); Basophils Percent Auto 0.5 % (0.2-1.2); Eosinophils Absolute Auto 0.1 K/mm3 (0-0.3); Eosinophils Percent Auto 0.8 % (0-4.4); Hematocrit 41.8 % (37.0-47.0); Immature Granulocyte Absolute 0.03 K/mm3 (0.00-0.031); Immature Granulocyte Percent A 0.3 % (0-0.5); Lymphocytes Absolute Auto 1.63 K/mm3 (0.9-3.2); Lymphocytes Percent Auto 15.1 % (18.3-44.2); Mean Corpuscular HGB Conc 33.5 g/dl (32-36); Mean Corpuscular Hemoglobin 30.4 pg (26-34); Mean Corpuscular Volume 90.7 fl (80-100); Mean Platelet Volume 9.9 fl (7.4-10.4); Monocytes Percent Auto 9.5 % (2.6-8.5); Neutrophils Percent Auto 73.8 % (45.5-73.1); Platelet Count Result 267 k/mm3 (150-375); Red Blood Count 4.61 M/mm3 (4.2-5.4); Red Cell Distribution Width 12.9 % (11.5-14.5); White Blood Count 10.8 K/mm3 (4.5-10.0)
[2022-11-02 22:16] LABS: Alanine Aminotransferase 16 U/L (6-35); Alkaline Phosphatase 60 U/L (38-126); Anion Gap 5 mmol/L (8-16); Aspartate Amino Transferase 28 U/L (14-36); Bilirubin,Total 0.6 mg/dL (0.2-1.3); Blood Urea Nitrogen 11 mg/dL (7-17); Calcium 9.1 mg/dL (8.4-10.2); Carbon Dioxide 31 mmol/L (22-30); Chloride 101 mmol/L (98-107); Estimated CRCL calculation 49 ml/min; Estimated Glomerular Filt Rate > 60; Glucose 123 mg/dL (65-110); Lipase 45 U/L (23-300); Potassium 3.7 mmol/L (3.4-5.0); Sodium 137 mmol/L (137-145)
--- NOTE | 2022-11-02 23:51 | PC.NURSE ---
Pt reports ongoing LLQ pain. Patient was admitted to this facility in August for colitis and has been having pain ever since. Pt c/o nausea, bloating, liquid stools, and vomiting. States Everything just feels full. Like a balloon that needs to be popped. My hiatal hernia is also acting up . Pt states she is unable to eat d/t bloating. States she eats a slice of toast, half a banana, and a few ensures throughout the day. She denies blood in her stools. She reports decreased urine output.
[2022-11-03 00:01] VITALS: BP 126/65; PULSE 80; RESP 20; O2SAT 97
[2022-11-03] MEDS: SODIUM CHLORIDE 0.9% IV 1,000 ML 999 ML IV CONT (00:45)
[2022-11-03] MEDS: PROCHLORPERAZINE EDISYLATE 10 MG/2 ML VIAL IV PUSH (00:46)
[2022-11-03] MEDS: diphenhydrAMINE HCl INJ 50 MG/ML VIAL IV PUSH (00:46)
[2022-11-03 01:06] LABS: Bacteria Urine None Seen /hpf; Need Manual Microscopic Reviewed; Squamous Epithelial Cell Urine Few /hpf (Few)
[2022-11-03 01:09] LABS: Appearance Urine Clear (Clear); Bilirubin Urine 1+ (Negative); Blood Urine 1+ (Negative); Color Urine Yellow (Yellow); Glucose Urine UA Negative (Negative); Ketones Urine 1+ mg/dL (Negative); Leukocyte Esterase Ur Trace LEU/UL (Negative); Nitrate Urine Negative (Negative); Protein Urine Negative (Negative); Urobilinogen Urine 0.2 mg/dL (<2.0)
[2022-11-03 01:14] VITALS: BP 113/54; PULSE 82; RESP 21; O2SAT 94
[2022-11-03 01:15] LABS: Add Urine Microscopic? YES
[2022-11-03 01:29] LABS: Troponin I < 0.012 ng/mL (0.000-0.034)
[2022-11-03 02:00] VITALS: BP 103/58; PULSE 80; RESP 21; O2SAT 89
--- NOTE | 2022-11-03 04:33 | ED.GENADULT ---
HPI - General Adult General Chief complaint: Abdominal Pain Stated complaint: abd pain Time Seen by Provider: 11/02/22 23:46 History of Present Illness HPI narrative: Patient 82-year-old female who presents the emergency department with chief complaint of abdominal pain. Patient reports that she had colitis about a month ago and has had intermittent episodes of diarrhea and reports that today she started having worsening pain in the left lower quadrant. The patient reports no vomiting does report that she has had Some loose stool that has been watery at times. Related Data Home Medications Medication Instructions Recorded Confirmed aspirin 81 mg tablet,delayed 81 mg PO DAILY 08/25/19 10/29/22 release (Adult Low Dose Aspirin) calcium carbonate 600 mg calcium 600 mg PO DAILY 08/25/19 10/29/22 (1,500 mg) tablet (Calcium) rosuvastatin 10 mg tablet (Crestor) 10 mg PO DAILY 08/25/19 10/29/22 antiarthritic combination no.2 900 900 mg PO BID PRN pain 02/07/21 10/29/22 mg tablet (glucosamine-chondroitin) multivitamin (Daily Multi-Vitamin 1 tablet PO DAILY 02/07/21 10/29/22 tablet) oxybutynin chloride 10 mg 10 mg PO DAILY 09/06/22 10/29/22 tablet,extended release 24 hr Allergies Allergy/AdvReac Type Severity Reaction Status Date / Time rifaximin AdvReac Intermediate Diarrhea Verified 10/29/22 09:06 amoxicillin AdvReac Mild Nausea and Verified 10/29/22 09:06 Vomiting cefaclor AdvReac Mild Nausea and Verified 10/29/22 09:06 Vomiting clavulanic acid AdvReac Mild Nausea and Verified 10/29/22 09:06 Vomiting erythromycin base AdvReac Mild Nausea and Verified 10/29/22 09:06 Vomiting Penicillins AdvReac Mild Nausea and Verified 10/29/22 09:06 Vomiting cefuroxime AdvReac Diarrhea Verified 10/29/22 09:06 Review of Systems Review of Systems: A 10 system review of systems was completed on the patient and is negative except for what is stated in the HPI. Nursing and ancillary documentation was reviewed. [facility] Past Medical History Medical History Anxiety Tang's palsy Bilateral carotid artery disease 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 Rodriguez at [facility]. Depression Diverticulitis Diverticulosis Dyslipidemia Esophageal web Gastroesophageal reflux disease Hiatal hernia Irritable bowel syndrome with diarrhea Migraine headache Obstructive sleep apnea Optic neuritis Overactive bladder Paroxysmal atrial fibrillation Peptic ulcer Polio Surgical History Surgical History History of appendectomy History of bilateral cataract extraction History of cholecystectomy History of esophagogastroduodenoscopy History of hysterectomy History of loop recorder History of open reduction and internal fixation (ORIF) procedure Repair right ankle fracture. History of right breast biopsy History of sinus surgery Status post repair of paraesophageal diaphragmatic hernia Family History Family History Mother Lung cancer Father Heart disease Sibling Diabetes mellitus Son Lung cancer Social History Social History Social History: Surrogate medical decision maker: David Meyer, son. Code status: Full code. Smoking status: Never smoker Second hand tobacco smoke exposure: Yes Alcohol intake: never Substance use: never Substance use type: does not use Lack of Transportation: No Lack of Food: Never True Current Housing: I Have Housing Concerned About Future Housing: No Difficulty Paying Gas/Electric Bills: No Difficulty Paying for Meds: No Currently Unemployed: No Education: Associate Degree Difficulty w/ Childcare or Family Care: No Living arrangements: alone Additi
[2022-11-03 04:53] VITALS: BP 103/52; PULSE 77; RESP 18; TEMP 36.9; O2SAT 98
== END 2022-11-03 04:55 | disposition home or self-care (01) ==
PROVIDERS: Emergency Provider Emergency Medicine; PCP Internal Medicine
DX: K59.00 Constipation, unspecified (principal); I48.0 Paroxysmal atrial fibrillation; I25.10 Atherosclerotic heart disease of native coronary artery without angina pectoris; E78.5 Hyperlipidemia, unspecified; G47.33 Obstructive sleep apnea (adult) (pediatric); N32.81 Overactive bladder; K58.0 Irritable bowel syndrome with diarrhea; K21.9 Gastro-esophageal reflux disease without esophagitis; Z87.11 Personal history of peptic ulcer disease; Z86.12 Personal history of poliomyelitis; Z98.42 Cataract extraction status, left eye; Z98.41 Cataract extraction status, right eye; Z90.49 Acquired absence of other specified parts of digestive tract; Z90.710 Acquired absence of both cervix and uterus; Z77.22 Contact with and (suspected) exposure to environmental tobacco smoke (acute) (chronic); Z79.82 Long term (current) use of aspirin; Z79.01 Long term (current) use of anticoagulants; K44.9 Diaphragmatic hernia without obstruction or gangrene
CPT/HCPCS: 36415; 74177; 80053; 81001; 83605; 83690; 84484; 85025; 87086; 87088; 96361; 96374; 96375; 99284; J0780; J1200; J7030; Q9967

== ENCOUNTER 2022-11-06 09:44 | Outpatient (CLI) | payer MEDICARE, SELFPAY ==
--- NOTE | ~2022-11-06 | XR_ITS ---
Supine and upright views of the abdomen Clinical history: Constipation Findings: Bowel gas pattern is nonspecific. Moderate to large amount of stool present, especially in the right colon and proximal descending colon. No abnormal mass lesion or calcification is seen. Yamileth ral surgical clips noted in the abdomen. There is 31 degrees dextroscoliosis. Impression: Moderate to large amount of stool, as above. Please refer to recent CT from 11/03/2022 for further deta ils. 31 degree dextroscoliosis. Reviewed, dictated and finalized at location M. Impression: Moderate to large amount of stool, as above. Please refer to recent CT from 11/03 for further details. 31 degree dextroscoliosis.
== END 2022-11-06 09:45 | disposition home or self-care (01) ==
PROVIDERS: PCP Internal Medicine; Visit Provider Nurse Practitioner Family
DX: K59.00 Constipation, unspecified (principal); R93.89 Abnormal findings on diagnostic imaging of other specified body structures; R19.7 Diarrhea, unspecified
CPT/HCPCS: 74018

== ENCOUNTER 2022-11-07 02:10 | Emergency (ER) | payer MEDICARE, SELFPAY ==
[2022-11-07] VITALS (8 sets, daily range): BP systolic 25–129; BP diastolic 0–102; PULSE 66–89; RESP 14–31; TEMP 36.1–36.4; O2SAT 89–100
--- NOTE | ~2022-11-07 | XR_ITS ---
Portable chest x-ray Comparison: 11/07/2022 at 5:06 AM Clinical History: Tube placement Findings: Endotracheal tube is in place, tip 2 cm above soco. Right IJ line in place, tip probably in the right atrium. There is minimal haziness in the perihilar regions bilaterally. Possible underl nicole COPD. Cardiomediastinal silhouette is stable. Bones and soft tissues are unremarkable. Impression: Support tubes in place, as above. Probable minimal central pulmonary edema. Correlate clinically for pneumonia. Reviewed, dictated and finalized at location . Impression: Support tubes in place, as above. Probable minimal central pulmonary edema. Correlate clinically for pneumonia.
--- NOTE | ~2022-11-07 | XR_ITS ---
Portable chest x-ray Comparison: 11/07/2022 at 5:31 AM Clinical History: Line placed Findings: Right IJ line is unchanged, tip likely in the right atrium. Lungs are clear, without focal consolidation or pleural effusion. Possible COPD. Cardiomediastinal silhouette is stable. Bones and soft tissues are unremarkable. Impression: Right IJ line in place, as above, essentially unchanged. Clear lungs. Possible COPD. Reviewed, dictated and finalized at location M. Impression: Right IJ line in place, as above, essentially unchanged. Clear lungs. Possible COPD.
--- NOTE | ~2022-11-07 | CT_ITS ---
CT of the Abdomen and Pelvis: Indication: Small bowel obstruction Technique: 2.5 mm axial scans were obtained through the abdomen and pelvis following intravenous adm inistration of 100 cc of Omnipaque 350. Dose reduction technique was used on this scan by utilizing a utomated exposure control and iterative reconstruction technique. The dose-length product (DLP) was 2 76.91 mGy-cm. COMPARISON: 11/03/2022 Findings: Scans through the lung bases demonstrate stable right middle lobe scarring. Large hiatal h ernia noted. The liver, spleen, pancreas, adrenals and kidneys are within normal limits. Cholecystectomy clips are present. There are atherosclerotic calcifications of the aorta. No lymphadenopathy. There is diffuse wall thickening of the large bowel. There is additional suspected wall thickening of the gastric antrum and to a lesser extent, the gastric body. There is wall thickening of multiple sm all bowel loops. Large amount of ascites present. Moderate to large amount of pneumoperitoneum presen t. There is large amount of stool particularly at the transverse and splenic flexure region of the co jaki. Again noted is probable wall thickening focally at the proximal descending colon with caliber ch donnie, suspicious for element of large bowel obstruction. Also noted is an irregular collection of hyperdense contrast, identical to that in the arterial struc tures, predominantly just within the splenic flexure the colon (axial images 43-59), suspicious for a ctive GI bleed. There is also extravasation of some of this contrast, with small amount of hyperdense contrast layering dependently in the ascitic fluid (for example in posteriorly on axial image 80). Images through the pelvis were performed. Urinary bladder unremarkable. Patient is post hysterectomy. No adnexal mass evident. Impression: Moderate to large amount of pneumoperitoneum, consistent with bowel perforation. Site of perforation is likely at the splenic flexure/proximal descending colon. Findings suspicious for active arterial GI bleeding, as detailed above. There is also small volume of extravasated extraluminal contrast, as detailed above. Diffuse bowel wall thickening, suspicious for enterocolitis. Large rectal stool at the splenic flexure of the colon transverse colon, with caliber change and prob able focal wall thickening at the proximal descending colon. Findings are again suspicious for elemen t of large bowel obstruction, with possible underlying neoplastic lesion at the proximal descending c olon. Moderate to large amount of ascites. Large hiatal hernia. Reviewed, dictated and finalized at location M. Impression: Moderate to large amount of pneumoperitoneum, consistent with bowel perforation . Site of perforation is likely at the splenic flexure/proximal descending colo n. Findings suspicious for active arterial GI bleeding, as detailed above. There i s also small volume of extravasated extraluminal contrast, as detailed above. Diffuse bowel wall thickening, suspicious for enterocolitis. Large rectal stool at the splenic flexure of the colon transverse colon, with c aliber change and probable focal wall thickening at the proximal descending col on. Findings are again suspicious for element of large bowel obstruction, with possible underlying neoplastic lesion at the proximal descending colon. Moderate to large amount of ascites. Large hiatal hernia.
[2022-11-07] MEDS: SODIUM CHLORIDE 0.9% IV 1,000 ML 999 ML IV CONT (03:23)
[2022-11-07] MEDS: HYDROmorphone HCL INJ (*CRX) 1 MG/ML SYR 0.5 MG IV PUSH (03:24)
[2022-11-07 03:39] LABS: Basophils Percent Auto 0.5 % (0.2-1.2); Hematocrit 48.2 % (37.0-47.0); Hemoglobin 16.2 g/dL (12.0-15.0); Immature Granulocyte Absolute 0.01 K/mm3 (0.00-0.031); Immature Granulocyte Percent A 0.2 % (0-0.5); Lymphocytes Absolute Auto 0.78 K/mm3 (0.9-3.2); Lymphocytes Percent Auto 18.7 % (18.3-44.2); Mean Corpuscular HGB Conc 33.6 g/dl (32-36); Mean Corpuscular Hemoglobin 30.3 pg (26-34); Mean Corpuscular Volume 90.1 fl (80-100); Mean Platelet Volume 9.8 fl (7.4-10.4); Monocytes Percent Auto 0.7 % (2.6-8.5); Neutrophils Absolute Auto 3.3 K/mm3 (1.3-6.7); Neutrophils Percent Auto 78.9 % (45.5-73.1); Platelet Count Result 273 k/mm3 (150-375); Red Blood Count 5.35 M/mm3 (4.2-5.4); Red Cell Distribution Width 13.1 % (11.5-14.5); White Blood Count 4.2 K/mm3 (4.5-10.0)
--- NOTE | 2022-11-07 03:51 | PC.NURSE ---
Per EDP Dr. Sarkar orthostatic blood pressures not needed on this patient
[2022-11-07 03:53] LABS: Alanine Aminotransferase 18 U/L (6-35); Albumin Level 3.7 g/dL (3.5-5.1); Alkaline Phosphatase 93 U/L (38-126); Anion Gap 11 mmol/L (8-16); Aspartate Amino Transferase 28 U/L (14-36); Bilirubin,Total 0.6 mg/dL (0.2-1.3); Blood Urea Nitrogen 14 mg/dL (7-17); Calcium 8.4 mg/dL (8.4-10.2); Carbon Dioxide 19 mmol/L (22-30); Chloride 106 mmol/L (98-107); Estimated CRCL calculation 56 ml/min; Estimated Glomerular Filt Rate > 60; Glucose 169 mg/dL (65-110); Lipase 126 U/L (23-300); Sodium 136 mmol/L (137-145)
--- NOTE | 2022-11-07 04:18 | ED.GENADULT ---
HPI - General Adult General Chief complaint: Nausea/Vomiting/Diarrhea Stated complaint: N/V/D Time Seen by Provider: 11/07/22 02:25 History of Present Illness HPI narrative: This is an 82-year-old female presenting ED with chief complaint of nausea/vomiting. Patient has been having bowel issues since she was diagnosed with colitis in late August. Today she started to have crampy abdominal pain that is diffuse, 10 out 10 intensity and constant. She has never had pain like this before there are no exacerbating symptoms. States she has not passed gas today. She had called her GI office and was told to take bowel prep to help with constipation. She has taken that has made her pain worse. Related Data Home Medications Medication Instructions Recorded Confirmed aspirin 81 mg tablet,delayed 81 mg PO DAILY 08/25/19 10/29/22 release (Adult Low Dose Aspirin) calcium carbonate 600 mg calcium 600 mg PO DAILY 08/25/19 10/29/22 (1,500 mg) tablet (Calcium) rosuvastatin 10 mg tablet (Crestor) 10 mg PO DAILY 08/25/19 10/29/22 antiarthritic combination no.2 900 900 mg PO BID PRN pain 02/07/21 10/29/22 mg tablet (glucosamine-chondroitin) multivitamin (Daily Multi-Vitamin 1 tablet PO DAILY 02/07/21 10/29/22 tablet) oxybutynin chloride 10 mg 10 mg PO DAILY 09/06/22 10/29/22 tablet,extended release 24 hr Allergies Allergy/AdvReac Type Severity Reaction Status Date / Time rifaximin AdvReac Intermediate Diarrhea Verified 10/29/22 09:06 amoxicillin AdvReac Mild Nausea and Verified 10/29/22 09:06 Vomiting cefaclor AdvReac Mild Nausea and Verified 10/29/22 09:06 Vomiting clavulanic acid AdvReac Mild Nausea and Verified 10/29/22 09:06 Vomiting erythromycin base AdvReac Mild Nausea and Verified 10/29/22 09:06 Vomiting Penicillins AdvReac Mild Nausea and Verified 10/29/22 09:06 Vomiting cefuroxime AdvReac Diarrhea Verified 10/29/22 09:06 [facility] Past Medical History Medical History Anxiety Tang's palsy Bilateral carotid artery disease 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 Rodriguez at [place]. Depression Diverticulitis Diverticulosis Dyslipidemia Esophageal web Gastroesophageal reflux disease Hiatal hernia Irritable bowel syndrome with diarrhea Migraine headache Obstructive sleep apnea Optic neuritis Overactive bladder Paroxysmal atrial fibrillation Peptic ulcer Polio Surgical History Surgical History History of appendectomy History of bilateral cataract extraction History of cholecystectomy History of esophagogastroduodenoscopy History of hysterectomy History of loop recorder History of open reduction and internal fixation (ORIF) procedure Repair right ankle fracture. History of right breast biopsy History of sinus surgery Status post repair of paraesophageal diaphragmatic hernia Family History Family History Mother Lung cancer Father Heart disease Sibling Diabetes mellitus Son Lung cancer Social History Social History Social History: Surrogate medical decision maker: David Meyer, son. Code status: Full code. Smoking status: Never smoker Second hand tobacco smoke exposure: Yes Alcohol intake: never Substance use: never Substance use type: does not use Lack of Transportation: No Lack of Food: Never True Current Housing: I Have Housing Concerned About Future Housing: No Difficulty Paying Gas/Electric Bills: No Difficulty Paying for Meds: No Currently Unemployed: No Education: Associate Degree Difficulty w/ Childcare or Family Care: No Living arrangements: alone Additional living arrangements comments: . Lives in [place]. Spiritual care concerns: No Exam Narrative
[2022-11-07] MEDS: metroNIDAZOLE 500 MG/ISO 100ML 500 MG/100 ML BAG 100 MG IVPB (04:22)
[2022-11-07 04:26] LABS: Appearance Urine Clear (Clear); Bilirubin Urine Negative (Negative); Blood Urine Negative (Negative); Color Urine Yellow (Yellow); Glucose Urine UA Negative (Negative); Ketones Urine Negative (Negative); Leukocyte Esterase Ur Negative LEU/UL (Negative); Nitrate Urine Negative (Negative); Protein Urine Negative (Negative); Specific Grav Ur 1.009 (1.001-1.035); Urobilinogen Urine 0.2 mg/dL (<2.0)
[2022-11-07 04:56] LABS: Add Urine Microscopic? NO
--- NOTE | 2022-11-07 05:50 | PC.NURSE ---
0430- Oxygen saturation on room air 57%. Non-rebreather applied at 15L by this RN. Dr. Sarkar at bedside. 0432- bp 43/20, HR 81 0435- 14G IV inserted to left EJ by Dr. Sarkar. 0442- Levo drip started at 5mcg/min 0445- bp 86/50, hr 81 0447- levo increased to 10mcg/min 0449- uncrossmatched O neg blood started to gravity 0451- bp 66/44, hr 79, spo2 88% 0453- levo increased to 15mcg/min 0455- bp 79/64, hr 78 0500- Fentanyl drip started infusing through central line 0501- First unit of blood infused 0502- Second unit of uncrossmatched O neg blood started transfusing through 14G in EJ 0505- bp 89/46, hr 75 0508- Kaycentra started infusing 0508- levo increased to 20mcg/min 0510- bp 99/58, hr 75 0511- 20mg etomidate administered by this RN through central line 0511- 100mg rocuronium administered by this RN through central line 0512- 7.5 ETT inserted with Mac 3 0513- Dr. Sarkar attempted to insert 16Fr OG tube x2 without success 0515- 2nd unit of blood completed 0515- bp 49/34, hr 68 0520- bp 44/33, hr 65 0521- kaycentra completed infusion 0521- levo increased to 25mcg/min 0525- bp 55/19, hr 66 0525- fentanyl drip turned off 0530- bp 38/26, hr 67 0535- Daughter in law at bedside 0545- 3rd and 4th units of uncrossmatched O neg blood arrived to ED. 3rd unit started to gravity. 4th unit given to [facility] team to start en route to [place]. 0548- Pt departed department.
--- NOTE | 2022-11-07 05:55 | PC.NURSE ---
Nurse and EDP attempted twice to do an 16 tunisian OG tube. NG tube was then attempted. Both tubes were met with resistance and tube was placed.
[2022-11-07] MEDS: TUBING, BLOOD PLUM PUMP TUBING 1 EACH XX (06:04)
== END 2022-11-07 06:37 | disposition short-term general hospital (02) ==
PROVIDERS: Emergency Provider Emergency Medicine; PCP Internal Medicine
DX: K63.1 Perforation of intestine (nontraumatic) (principal); R57.8 Other shock; T45.515A Adverse effect of anticoagulants, initial encounter; I25.10 Atherosclerotic heart disease of native coronary artery without angina pectoris; I48.0 Paroxysmal atrial fibrillation; E78.5 Hyperlipidemia, unspecified; K21.9 Gastro-esophageal reflux disease without esophagitis; K58.0 Irritable bowel syndrome with diarrhea; G47.33 Obstructive sleep apnea (adult) (pediatric); N32.81 Overactive bladder; F32.A Depression, unspecified; F41.9 Anxiety disorder, unspecified; Z87.11 Personal history of peptic ulcer disease; Z86.12 Personal history of poliomyelitis; Z98.42 Cataract extraction status, left eye; Z98.41 Cataract extraction status, right eye; Z90.49 Acquired absence of other specified parts of digestive tract; Z90.710 Acquired absence of both cervix and uterus; Z79.01 Long term (current) use of anticoagulants; Z79.82 Long term (current) use of aspirin; K44.9 Diaphragmatic hernia without obstruction or gangrene; R18.8 Other ascites; R93.3 Abnormal findings on diagnostic imaging of other parts of digestive tract; R91.8 Other nonspecific abnormal finding of lung field
CPT/HCPCS: 31500; 36415; 36430; 36556; 74177; 80053; 81003; 83690; 85025; 86900; 86901; 86920; 96361; 96365; 96375; 99291; C1751; J1170; J2060; J3010; J7030; J7050; P9016; Q9967